=== PATIENT | male | born 1990 | race Asian ===

== ENCOUNTER 2018-11-01 21:07 | Inpatient (IN) | payer OTHER ==
[~2018-11-01] VITALS: Ht 167.6 cm; Wt 68.0 kg
[2018-11-01 21:20] VITALS: BP 152/79
--- NOTE | 2018-11-01 21:20 | NUR ---
ED Nurse Note: Patient walked into ED c/o SOB accompanied by non-radiating pressure like chest pain. patient is sattign at 86% on room air. patient was placed on a monitor and is tachycardic at 120 and tachypnic at 35. patient presents with wheezes in both lungs, denies any drug use. patient is alert and oriented x4 and is ambulatory with a steady gait. IV started on left AC 18 gauge, will wait for further orders
[2018-11-01] MEDS ORDERED: Solu-MEDROL 125mg Inj IVP ONE (21:30)
[2018-11-01] MEDS: Albuterol ud Inhalation HHN SCH ×3 (21:36→21:53)
[2018-11-01 22:04] LABS: HEMATOCRIT 47.7 % (42.0-52.0); HEMOGLOBIN 17.3 G/DL (14.2-18.0); MEAN CORPUSCULAR VOLUME 84 FL (80-99); PLATELET COUNT 279 K/UL (150-450); RED BLOOD COUNT 5.67 M/UL (4.70-6.10); WHITE BLOOD COUNT 21.3 K/UL (4.8-10.8)
[2018-11-01 22:07] LABS: APPEARANCE,URINE CLEAR; BILIRUBIN, URINE NEGATIVE (NEGATIVE); GLUCOSE, URINE (UA) NEGATIVE (NEGATIVE); KETONES,URINE 4+ (NEGATIVE); LEUKOCYTE ESTERASE ,URINE NEGATIVE (NEGATIVE); NITRITE,URINE NEGATIVE (NEGATIVE); PH,URINE 7 (4.5-8.0); PROTEIN,URINE NEGATIVE (NEGATIVE); UROBILINOGEN,URINE 4 MG/DL (0.0-1.0)
[2018-11-01 22:11] LABS: COLOR,URINE YELLOW
[2018-11-01 22:22] LABS: ANION GAP 10 mmol/L (5-15); BLOOD UREA NITROGEN 9 mg/dL (7-18); CALCIUM 9.1 MG/DL (8.5-10.1); CARBON DIOXIDE 25 MMOL/L (21-32); CHLORIDE 103 MMOL/L (98-107); POTASSIUM 3.4 MMOL/L (3.5-5.1); SODIUM 138 MMOL/L (136-145)
[2018-11-01] MEDS ORDERED: Albuterol/Ipratropium 3ml neb HHN ONE (22:30)
[2018-11-01] MEDS ORDERED: cefTRIAXone 1 GM in NS 55 ML IVPB ONE (22:30)
[2018-11-01] MEDS ORDERED: Isovue-370 150ml vial INJ PRN (22:30)
[2018-11-01] MEDS ORDERED: Azithromycin 500 MG in D5W 275 ML IVPB ONE (22:30)
--- NOTE | 2018-11-01 22:34 | Emergency Room Report ---
History of Present Illness General Chief Complaint: Chest Pain Source: Patient Present Illness HPI Patient is a 28-year-old male who presents after increased chest discomfort. Patient reports of increased chest tightness. patient reports last using cocaine approximately 3 days prior to arrival. He states that he has been having increased difficulty with respirations and nonproductive cough. He denies any prior history of HIV or other medical conditions. He states he has prior history of allergy to cocaine. Patient reports having increased chest discomfort. he reports having worsening discomfort with supine position. Allergies: Coded Allergies: No Known Allergies (Unverified , 11/01/18) Patient History Past Medical History: see triage record Reviewed Nursing Documentation: PMH: Agreed; PSxH: Agreed Nursing Documentation-PMH Past Medical History: No Stated History Review of Systems All Other Systems: negative except mentioned in HPI Physical Exam Vital Signs Date Time Temp Pulse Resp B/P (MAP) Pulse Ox O2 Delivery O2 Flow Rate FiO2 11/01/18 21:15 98.6 120 37 163/81 (108) 86 Room Air 11/01/18 21:32 2.0 28 Sp02 EP Interpretation: reviewed, normal General Appearance: normal inspection, alert, GCS 15, moderate distress Head: atraumatic ENT: normal ENT inspection, hearing grossly normal, normal voice Neck: normal inspection, supple, no bony tend Respiratory: normal inspection, no respiratory distress, no retraction, accessory muscle use, wheezing Cardiovascular #1: regular rate, rhythm, no edema Gastrointestinal: normal inspection, normal bowel sounds, non tender, soft, no guarding, no hernia Genitourinary: no CVA tenderness Musculoskeletal: normal inspection, back normal, normal range of motion Neurologic: normal inspection, alert, oriented x3, responsive, rn birthing III-XII nml as tested, speech normal Psychiatric: normal inspection, judgement/insight normal, mood/affect normal Medical Decision Making Diagnostic Impression: Primary Impression: Chest pain Additional Impressions: Bronchospasm, acute Pneumonitis ER Course Patient presented for shortness of breath. Differential diagnosis include was not limited to pneumonia, congestive heart failure, pulmonary embolism, among others. Because of complexity of patient's case laboratory testing and imaging studies were ordered. EKG interpreted by me showed sinus tachycardia with a rate of 117 with right axis deviation. There are no acute ST or T wave changes noted. Patient given breathing treatments as well as IV steroids. Laboratory testing was notable for elevated white blood count. Chest x-ray one view interpreted by me showed normal cardiac size with bilateral lung infiltrates. Patient was noted to have some low oxygen saturation after medications.CT imaging of the chest read by radiology showed aortic aneurysm or dissection. patient was noted to have significant hypoxemia and was started on supplemental oxygen. He was given IV fluids. He was started on IV antibiotics. Urine drug screen showed cocaine as well as marijuana. Patient's lung findings per radiology shows some evidence of atypical pneumonia. Dr. Devika Maldonado was contacted for inpatient management Labs Test 11/01/18 21:00 11/01/18 21:30 White Blood Count 21.3 K/UL (4.8-10.8) Red Blood Count 5.67 M/UL (4.70-6.10) Hemoglobin 17.3 G/DL (14.2-18.0) Hematocrit 47.7 % (42.0-52.0) Mean Corpuscular Volume 84 FL (80-99) Mean Corpuscular Hemoglobin 30.5 PG (27.0-31.0) Mean Corpuscular Hemoglobin Concent 36.3 G/DL (32.0-36.0) Red Cell Distribution Width 11.0 % (11.6-14.8) Platelet Count 279 K/UL (150-450) Mean Platelet Volume 6.3 FL (6.5-10.1) Neutrophils (%) (Auto) % (45.0-75.0) Lymphocytes (%) (Auto) % (20.0-45.0) Monocytes (%) (Auto) % (1.0-10.0) Eosinophils (%) (Auto) % (0.0-3.0) Basophils (%) (Auto) % (0.0-2.0) D-Dimer 0.76 mg/L FEU (0.00-0.49) Sodium Level 138 MMOL/L (136-145) Potassium Level 3.4 MMOL/L (3.5-5.1) Chloride Level 103 MMOL/L (98-107) Carbon Dioxide Level 25 MMOL/L (21-32) Anion Gap 10 mmol/L (5-15) Blood Urea Nitrogen 9 mg/dL (7-18) Creatinine 1.0 MG/DL (0.55-1.30) Estimat Glomerular Filtration Rate > 60 mL/min (>60) Glucose Level 104 MG/DL (74-106) Calcium Level 9.1 MG/DL (8.5-10.1) Urine Color Yellow Urine Appearance Clear Urine pH 7 (4.5-8.0) Urine Specific [place] 1.010 (1.005-1.035) Urine Protein Negative (NEGATIVE) Urine Glucose (UA) Negative (NEGATIVE) Urine Ketones 4+ (NEGATIVE) Urine Blood Negative (NEGATIVE) Urine Nitrite Negative (NEGATIVE) Urine Bilirubin Negative (NEGATIVE) Urine Urobilinogen 4 MG/DL (0.0-1.0) Urine Leukocyte Esterase Negative (NEGATIVE) Urine Opiates Screen Negative (NEGATIVE) Urine Barbiturates Screen Negative (NEGATIVE) Phencyclidine (PCP) Screen Negative (NEGATIVE) Urine Amphetamines Screen Negative (NEGATIVE) Urine Benzodiazepines Screen Negative (NEGATIVE) Urine Cocaine Screen Positive (NEGATIVE) Urine Marijuana (THC) Screen Positive (NEGATIVE) Last Vital Signs Date Time Temp Pulse Resp B/P (MAP) Pulse Ox O2 Delivery O2 Flow Rate FiO2 11/01/18 22:04 122 26 98 Nasal Cannula 2.0 28 11/01/18 21:15 98.6 163/81 (108) Status: improved Disposition: HOME, SELF-CARE Condition: Stable Referrals: NOT CHOSEN IPA/,REFERRING (PCP) Antonio Mcclendon MD Nov 01, 2018 22:34
[2018-11-01 22:37] LABS: ALANINE AMINOTRANSFERASE 31 U/L (12-78); ALBUMIN 3.9 G/DL (3.4-5.0); ALBUMIN/GLOBULIN RATIO 1.1 (1.0-2.7); ALKALINE PHOSPHATASE 111 U/L (46-116); ASPARTATE AMINO TRANSFERASE 16 U/L (15-37); CKMB 2.3 NG/ML (0.0-3.6); CREATINE KINASE 163 U/L (26-308)
[2018-11-01 22:39] LABS: BILIRUBIN,DIRECT 0.4 MG/DL (0.0-0.3)
[2018-11-01] MEDS ORDERED: NKM (23:36)
--- NOTE | 2018-11-01 23:48 | NUR ---
ED Nurse Note: Patient is laying down calmly in bed, o2 sat at 90%
[2018-11-02] VITALS (7 sets, daily range): BP systolic 119–140; BP diastolic 70–86
--- NOTE | 2018-11-02 00:10 | Diagnostic Imaging Report ---
Indication: Chest pain and shortness of breath Technique: Continuous helical transaxial imaging of the chest was obtained from the thoracic inlet to the upper abdomen during rapid intravenous contrast administration. Arterial phase of enhancement obtained. Coronal 2-D reformats were also obtained and maximum intensity projection images in multiple planes. Study obtained in a Siemens sensation [address] Automatic Exposure Control was utilized. Total Dose length Product (DLP): 745.[address] Dose Index Volume (CTDIvol): 20.42 mGy Comparison: None Findings: The pulmonary artery is well opacified and shows no filling defects. There is no adenopathy, pleural or pericardial effusions are identified. There is no aortic dissection or aneurysm identified within the chest. Patchy reticular nodular densities are demonstrated within the lungs with some mild perihilar and peripheral upper lobe groundglass opacities and focal left posterior basilar groundglass opacity. Findings are nonspecific but may be infectious or inflammatory in nature. Correlate clinically. Impression: No evidence of pulmonary embolus, aortic dissection or aneurysm. Pulmonary infiltrates as described above, nonspecific but suggestive of inflammatory/infectious disease. Would consider embolic phenomena especially septic emboli, atypical pneumonia especially fungal or granulomatous. Neoplasm is generally considered in the differential but given the young age is not likely. Would consider drug-induced pneumonitis or allergy as well. Clinical workup is needed. The CT scanner at [facility] is accredited by the [employer] and the scans are performed using dose optimization techniques as appropriate to a performed exam including Automatic Exposure control.
--- NOTE | 2018-11-02 00:15 | NUR ---
ED Nurse Note: Non-rebreather placed on patient, satting at 98%
--- NOTE | 2018-11-02 00:37 | NUR ---
ED Nurse Note: Patient placed on a simple mask 5 liters, satting at 97%
--- NOTE | 2018-11-02 00:45 | NUR ---
TRANSFER TO FLOOR: Patient transferred to Telemetry as ordered, per . Report given to EDY Mendoza
--- NOTE | 2018-11-02 02:30 | NUR ---
NURSE NOTES: patient has 823 dollars in the safe all confirmed by myself, security, charge nurse, and data warehouse consultant. Patient has his tear off and hospital tear off was stapled to patients belongings list in chart
[2018-11-02 07:28] LABS: HEMATOCRIT 45.3 % (42.0-52.0); HEMOGLOBIN 15.7 G/DL (14.2-18.0); MEAN CORPUSCULAR VOLUME 89 FL (80-99); PLATELET COUNT 254 K/UL (150-450); WHITE BLOOD COUNT 15.8 K/UL (4.8-10.8)
[2018-11-02 07:40] LABS: ALANINE AMINOTRANSFERASE 25 U/L (12-78); ALBUMIN 3.3 G/DL (3.4-5.0); ALBUMIN/GLOBULIN RATIO 0.9 (1.0-2.7); ALKALINE PHOSPHATASE 97 U/L (46-116); ANION GAP 10 mmol/L (5-15); ASPARTATE AMINO TRANSFERASE 13 U/L (15-37); BLOOD UREA NITROGEN 9 mg/dL (7-18); CALCIUM 9.1 MG/DL (8.5-10.1); CARBON DIOXIDE 24 MMOL/L (21-32); CHLORIDE 106 MMOL/L (98-107); CREATININE 0.9 MG/DL (0.55-1.30); POTASSIUM 3.9 MMOL/L (3.5-5.1); SODIUM 140 MMOL/L (136-145)
--- NOTE | 2018-11-02 07:54 | NUR ---
NURSE NOTES: Received report from EDY Huff. The patient is resting on the bed without acute distress or shortness of breath. The patient's bed in the lowest position, call light in reach, and fall and aspiration precaution reinforced. IV site is intact and patent. Will continue plan of care.
--- NOTE | 2018-11-02 09:11 | Consultation ---
History of Present Illness General Date patient seen: Nov 02, 2018 Chief Complaint: Present Illness Allergies: Coded Allergies: No Known Allergies (Unverified , 11/01/18) Medication History Scheduled No Known Medications* (NKM - No Known Medications*), 0 ., (Reported) Patient History Healthcare decision maker Resuscitation status Full Code Advanced Directive on File Physical Exam Last 24 Hour Vital Signs Date Time Temp Pulse Resp B/P (MAP) Pulse Ox O2 Delivery O2 Flow Rate FiO2 11/02/18 08:00 97.4 97 18 134/77 (96) 95 11/02/18 04:00 98.1 105 18 133/70 (91) 96 11/02/18 04:00 102 11/02/18 02:32 103 11/02/18 01:52 96.9 105 18 127/76 (93) 96 11/02/18 01:51 Room Air 11/02/18 00:37 98.5 112 21 132/72 97 Simple Mask 5.0 11/02/18 00:15 98.6 110 21 138/72 97 Room Air 5.0 11/01/18 22:46 124 21 97 Nasal Cannula 2.0 28 11/01/18 22:36 122 17 95 Nasal Cannula 2.0 28 11/01/18 22:04 122 26 98 Nasal Cannula 2.0 28 11/01/18 21:55 123 25 97 Nasal Cannula 2.0 28 11/01/18 21:54 123 25 97 Nasal Cannula 2.0 28 11/01/18 21:45 125 33 98 Nasal Cannula 2.0 28 11/01/18 21:44 125 34 98 Nasal Cannula 2.0 28 11/01/18 21:34 120 26 94 Nasal Cannula 2.0 28 11/01/18 21:32 120 26 94 Nasal Cannula 2.0 28 11/01/18 21:20 120 37 Room Air 11/01/18 21:20 98.6 120 37 152/79 89 Room Air 11/01/18 21:15 98.6 120 37 163/81 (108) 86 Room Air Intake and Output 11/01/18 11/02/18 19:00 07:00 Intake Total 1000 ml Balance 1000 ml Intake IV Total 1000 ml # Voids 3 Laboratory Tests Test 11/01/18 21:00 11/01/18 21:30 11/01/18 22:30 11/02/18 00:37 White Blood Count 21.3 K/UL (4.8-10.8) H Red Blood Count 5.67 M/UL (4.70-6.10) Hemoglobin 17.3 G/DL (14.2-18.0) Hematocrit 47.7 % (42.0-52.0) Mean Corpuscular Volume 84 FL (80-99) Mean Corpuscular Hemoglobin 30.5 PG (27.0-31.0) Mean Corpuscular Hemoglobin Concent 36.3 G/DL (32.0-36.0) H Red Cell Distribution Width 11.0 % (11.6-14.8) L Platelet Count 279 K/UL (150-450) Mean Platelet Volume 6.3 FL (6.5-10.1) L Neutrophils (%) (Auto) % (45.0-75.0) Lymphocytes (%) (Auto) % (20.0-45.0) Monocytes (%) (Auto) % (1.0-10.0) Eosinophils (%) (Auto) % (0.0-3.0) Basophils (%) (Auto) % (0.0-2.0) Differential Total Cells Counted 100 Neutrophils % (Manual) 85 % (45-75) H Lymphocytes % (Manual) 10 % (20-45) L Monocytes % (Manual) 2 % (1-10) Eosinophils % (Manual) 1 % (0-3) Basophils % (Manual) 1 % (0-2) Band Neutrophils 1 % (0-8) Platelet Estimate Adequate Platelet Morphology Normal Red Blood Cell Morphology Normal D-Dimer 0.76 mg/L FEU (0.00-0.49) H Sodium Level 138 MMOL/L (136-145) Potassium Level 3.4 MMOL/L (3.5-5.1) L Chloride Level 103 MMOL/L (98-107) Carbon Dioxide Level 25 MMOL/L (21-32) Anion Gap 10 mmol/L (5-15) Blood Urea Nitrogen 9 mg/dL (7-18) Creatinine 1.0 MG/DL (0.55-1.30) Estimat Glomerular Filtration Rate > 60 mL/min (>60) Glucose Level 104 MG/DL (74-106) Calcium Level 9.1 MG/DL (8.5-10.1) Total Bilirubin 2.0 MG/DL (0.2-1.0) H Direct Bilirubin 0.4 MG/DL (0.0-0.3) H Aspartate Amino Transf (AST/SGOT) 16 U/L (15-37) Alanine Aminotransferase (ALT/SGPT) 31 U/L (12-78) Alkaline Phosphatase 111 U/L (46-116) Total Creatine Kinase 163 U/L (26-308) Creatine Kinase MB 2.3 NG/ML (0.0-3.6) Creatine Kinase MB Relative Index 1.4 Troponin I 0.000 ng/mL (0.000-0.056) Pro-B-Type Natriuretic Peptide 74 pg/mL (0-125) Total Protein 7.6 G/DL (6.4-8.2) Albumin 3.9 G/DL (3.4-5.0) Globulin 3.7 g/dL Albumin/Globulin Ratio 1.1 (1.0-2.7) Urine Color Yellow Urine Appearance Clear Urine pH 7 (4.5-8.0) Urine Specific [place] 1.010 (1.005-1.035) Urine Protein Negative (NEGATIVE) Urine Glucose (UA) Negative (NEGATIVE) Urine Ketones 4+ (NEGATIVE) H Urine Blood Negative (NEGATIVE) Urine Nitrite Negative (NEGATIVE) Urine Bilirubin Negative (NEGATIVE) Urine Urobilinogen 4 MG/DL (0.0-1.0) H Urine Leukocyte Esterase Negative (NEGATIVE) Urine Opiates Screen Negative (NEGATIVE) Urine Barbiturates Screen Negative (NEGATIVE) Phencyclidine (PCP) Screen Negative (NEGATIVE) Urine Amphetamines Screen Negative (NEGATIVE) Urine Benzodiazepines Screen Negative (NEGATIVE) Urine Cocaine Screen Positive (NEGATIVE) H Urine Marijuana (THC) Screen Positive (NEGATIVE) H Lactic Acid Level 1.90 mmol/L (0.4-2.0) Arterial Blood pH 7.420 (7.350-7.450) Arterial Blood Partial Pressure CO2 37.8 mmHg (35.0-45.0) Arterial Blood Partial Pressure O2 90.7 mmHg (75.0-100.0) Arterial Blood HCO3 24.0 mmol/L (22.0-26.0) Arterial Blood Oxygen Saturation 96.2 % (95-100) Arterial Blood Base Excess -0.2 (-2-2) Enmanuel Test Positive Test 8/14/19 06:34 White Blood Count 15.8 K/UL (4.8-10.8) H Red Blood Count 5.10 M/UL (4.70-6.10) Hemoglobin 15.7 G/DL (14.2-18.0) Hematocrit 45.3 % (42.0-52.0) Mean Corpuscular Volume 89 FL (80-99) Mean Corpuscular Hemoglobin 30.7 PG (27.0-31.0) Mean Corpuscular Hemoglobin Concent 34.6 G/DL (32.0-36.0) Red Cell Distribution Width 12.0 % (11.6-14.8) Platelet Count 254 K/UL (150-450) Mean Platelet Volume 7.1 FL (6.5-10.1) Neutrophils (%) (Auto) % (45.0-75.0) Lymphocytes (%) (Auto) % (20.0-45.0) Monocytes (%) (Auto) % (1.0-10.0) Eosinophils (%) (Auto) % (0.0-3.0) Basophils (%) (Auto) % (0.0-2.0) Differential Total Cells Counted 100 Neutrophils % (Manual) 95 % (45-75) H Lymphocytes % (Manual) 3 % (20-45) L Monocytes % (Manual) 2 % (1-10) Eosinophils % (Manual) 0 % (0-3) Basophils % (Manual) 0 % (0-2) Band Neutrophils 0 % (0-8) Platelet Estimate Adequate Platelet Morphology Normal Sodium Level 140 MMOL/L (136-145) Potassium Level 3.9 MMOL/L (3.5-5.1) Chloride Level 106 MMOL/L (98-107) Carbon Dioxide Level 24 MMOL/L (21-32) Anion Gap 10 mmol/L (5-15) Blood Urea Nitrogen 9 mg/dL (7-18) Creatinine 0.9 MG/DL (0.55-1.30) Estimat Glomerular Filtration Rate > 60 mL/min (>60) Glucose Level 155 MG/DL (74-106) H Calcium Level 9.1 MG/DL (8.5-10.1) Total Bilirubin 1.0 MG/DL (0.2-1.0) Aspartate Amino Transf (AST/SGOT) 13 U/L (15-37) L Alanine Aminotransferase (ALT/SGPT) 25 U/L (12-78) Alkaline Phosphatase 97 U/L (46-116) Total Protein 7.1 G/DL (6.4-8.2) Albumin 3.3 G/DL (3.4-5.0) L Globulin 3.8 g/dL Albumin/Globulin Ratio 0.9 (1.0-2.7) L Height (Feet): 5 Height (Inches): 6.00 Weight (Pounds): 150 Medications Current Medications Medications (Trade) Dose Ordered Sig/Warren Route PRN Reason Start Time Stop Time Status Last Admin Dose Admin Iopamidol (Isovue-370 150ml) 150 ml NOW PRN INJ Radiology Procedure 11/01/18 22:30 11/03/18 22:28 Sodium Chloride 1,000 ml @ 70 mls/hr [id number] IV 11/02/18 01:45 12/02/18 01:44 11/02/18 01:45 Assessment/Plan Assessment/Plan: (1) Bronchospasm (2) Pneumonitis (3) Cocaine abuse (4) Alcohol abuse and withdrawals seen dictated Abebe Padilla Nov 02, 2018 09:11
[2018-11-02] MEDS ORDERED: LORazepam 1mg tab ORAL PRN (09:30)
[2018-11-02] MEDS ORDERED: HydrALAZINE 25mg tab ORAL PRN (10:00)
--- NOTE | 2018-11-02 10:00 | NUR ---
NURSE NOTES: Notified Dr. Zamora and Dr. Jacobs regarding abnormal lab result including WBC and D-dimer level. Also notified regarding CTA chest that said no PE, aortic anurysm or dissection. Dr. Jacobs ordered antibiotics and PRN medication for hypertension, NC oxygen, bilateral venous duplex, Tylenol, Zofram, CBC, BMP, HIV testing. Dr. Zamora ordered regular diet starting from mechanical soft and as tolerated. Carried out the order. Will continue plan of care.
[2018-11-02 10:23] LABS: HEMATOCRIT 49.2 % (42.0-52.0); HEMOGLOBIN 16.5 G/DL (14.2-18.0); MEAN CORPUSCULAR VOLUME 89 FL (80-99); PLATELET COUNT 279 K/UL (150-450); RED BLOOD COUNT 5.52 M/UL (4.70-6.10); WHITE BLOOD COUNT 17.5 K/UL (4.8-10.8)
[2018-11-02 10:33] LABS: ANION GAP 9 mmol/L (5-15); BLOOD UREA NITROGEN 9 mg/dL (7-18); CALCIUM 9.6 MG/DL (8.5-10.1); CARBON DIOXIDE 26 MMOL/L (21-32); CHLORIDE 106 MMOL/L (98-107); CREATININE 1.1 MG/DL (0.55-1.30); POTASSIUM 4.4 MMOL/L (3.5-5.1); SODIUM 140 MMOL/L (136-145)
--- NOTE | 2018-11-02 10:40 | NUR ---
Social Work This SW received notification due to substance abuse (cocaine). This SW met with patient who explains he was using cocaine recently, explains, "I'm not going to continue using anymore," due to the recent side effects/health problems patient has been having. This SW recommended outpatient counseling, support groups (offered substance abuse resources). Patient declined substance resources at this time. Patient plans to discharge to home with friend or to his mother's home; no other needs or concerns present at this time.
--- NOTE | 2018-11-02 11:30 | NUR ---
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 Would consider embolic phenomena especially septic emboli, atypical pneumonia especially fungal or granulomatous. Neoplasm is generally considered in the differential but given the young age is not likely. Would consider drug-induced pneumonitis or allergy as well. Clinical workup is needed. IS: Proventil HHN Solu-MEDROL 125mg IVP NS 1000ml IV Rocephin 1GM IVPB Albuterol/Ipratropium HHN Admitted to Telemetry Telemetry status DCP: Pending Hospital Stay
--- NOTE | 2018-11-02 11:35 | Pulmonology Progress Note ---
Assessment/Plan Assessment/Plan Pulmonary Consultation HPI Patient is a 28-year-old male admitted with chest discomfort shortness of breath and non productive cough, noted to have Pneumonia, patient reports last using cocaine approximately 3 days prior to arrival. He denies any prior history of HIV or other medical conditions. He states he has prior history of allergy to cocaine. Patient reports having increased chest discomfort. Denies hemoptysis, no previous Tuberculosis Allergies: No Known Allergies Past Medical History: Cocaine use All Other Systems: negative except mentioned in HPI Physical Exam Vital Signs Noted Date Time Temp Pulse Resp B/P (MAP) Pulse Ox O2 Delivery O2 Flow Rate FiO2 11/01/18 21:15 98.6 120 37 163/81 (108) 86 Room Air 11/01/18 21:32 2.0 28 General Appearance: normal inspection, alert, GCS 15, moderate distress Head: atraumatic ENT: normal inspection, moist mm, normal voice Neck: normal inspection, no LN Respiratory: normal inspection, CTAB Cardiovascular #1: regular rate, rhythm, normal HS1, HS2, no edema Gastrointestinal: normal inspection, normal bowel sounds, non tender, soft, no guarding, no hernia Genitourinary: no CVA tenderness Musculoskeletal: normal inspection, back normal, normal range of motion Neurologic: normal inspection, alert, oriented x3, responsive, no focal signs Impression: Pneumonia, bilateral patchy infiltrates Cocaine use Chest pain- no PE/Aortic dissection on CTA chest Wheezing Plan Ceftriaxone and Azithromycin IV steroids HHN PSYCH TECH meds PPX HIV serology negative Labs Test 11/01/18 21:00 11/01/18 21:30 White Blood Count 21.3 K/UL (4.8-10.8) Red Blood Count 5.67 M/UL (4.70-6.10) Hemoglobin 17.3 G/DL (14.2-18.0) Hematocrit 47.7 % (42.0-52.0) Mean Corpuscular Volume 84 FL (80-99) Mean Corpuscular Hemoglobin 30.5 PG (27.0-31.0) Mean Corpuscular Hemoglobin Concent 36.3 G/DL (32.0-36.0) Red Cell Distribution Width 11.0 % (11.6-14.8) Platelet Count 279 K/UL (150-450) Mean Platelet Volume 6.3 FL (6.5-10.1) Neutrophils (%) (Auto) % (45.0-75.0) Lymphocytes (%) (Auto) % (20.0-45.0) Monocytes (%) (Auto) % (1.0-10.0) Eosinophils (%) (Auto) % (0.0-3.0) Basophils (%) (Auto) % (0.0-2.0) D-Dimer 0.76 mg/L FEU (0.00-0.49) Sodium Level 138 MMOL/L (136-145) Potassium Level 3.4 MMOL/L (3.5-5.1) Chloride Level 103 MMOL/L (98-107) Carbon Dioxide Level 25 MMOL/L (21-32) Anion Gap 10 mmol/L (5-15) Blood Urea Nitrogen 9 mg/dL (7-18) Creatinine 1.0 MG/DL (0.55-1.30) Estimat Glomerular Filtration Rate > 60 mL/min (>60) Glucose Level 104 MG/DL (74-106) Calcium Level 9.1 MG/DL (8.5-10.1) Urine Color Yellow Urine Appearance Clear Urine pH 7 (4.5-8.0) Urine Specific [place] 1.010 (1.005-1.035) Urine Protein Negative (NEGATIVE) Urine Glucose (UA) Negative (NEGATIVE) Urine Ketones 4+ (NEGATIVE) Urine Blood Negative (NEGATIVE) Urine Nitrite Negative (NEGATIVE) Urine Bilirubin Negative (NEGATIVE) Urine Urobilinogen 4 MG/DL (0.0-1.0) Urine Leukocyte Esterase Negative (NEGATIVE) Urine Opiates Screen Negative (NEGATIVE) Urine Barbiturates Screen Negative (NEGATIVE) Phencyclidine (PCP) Screen Negative (NEGATIVE) Urine Amphetamines Screen Negative (NEGATIVE) Urine Benzodiazepines Screen Negative (NEGATIVE) Urine Cocaine Screen Positive (NEGATIVE) Urine Marijuana (THC) Screen Positive (NEGATIVE) Subjective ROS Limited/Unobtainable: No Allergies: Coded Allergies: No Known Allergies (Unverified , 11/01/18) Objective Last 24 Hour Vital Signs Date Time Temp Pulse Resp B/P (MAP) Pulse Ox O2 Delivery O2 Flow Rate FiO2 11/02/18 08:00 97.4 97 18 134/77 (96) 95 11/02/18 04:00 98.1 105 18 133/70 (91) 96 11/02/18 04:00 102 11/02/18 02:32 103 11/02/18 01:52 96.9 105 18 127/76 (93) 96 11/02/18 01:51 Room Air 11/02/18 00:37 98.5 112 21 132/72 97 Simple Mask 5.0 11/02/18 00:15 98.6 110 21 138/72 97 Room Air 5.0 11/01/18 22:46 124 21 97 Nasal Cannula 2.0 11/01/18 22:36 122 17 95 Nasal Cannula 2.0 11/01/18 22:04 122 26 98 Nasal Cannula 2.0 11/01/18 21:55 123 25 97 Nasal Cannula 2.0 11/01/18 21:54 123 25 97 Nasal Cannula 2.0 11/01/18 21:45 125 33 98 Nasal Cannula 2.0 11/01/18 21:44 125 34 98 Nasal Cannula 2.0 11/01/18 21:34 120 26 94 Nasal Cannula 2.0 11/01/18 21:32 120 26 94 Nasal Cannula 2.0 11/01/18 21:20 120 37 Room Air 11/01/18 21:20 98.6 120 37 152/79 89 Room Air 11/01/18 21:15 98.6 120 37 163/81 (108) 86 Room Air Intake and Output 11/01/18 11/02/18 19:00 07:00 Intake Total 1000 ml Balance 1000 ml Intake IV Total 1000 ml # Voids 3 Laboratory Tests 11/01/18 21:00: White Blood Count 21.3H, Red Blood Count 5.67, Hemoglobin 17.3, Hematocrit 47.7 , Mean Corpuscular Volume 84, Mean Corpuscular Hemoglobin 30.5, Mean Corpuscular Hemoglobin Concent 36.3H, Red Cell Distribution Width 11.0L, Platelet Count 279, Mean Platelet Volume 6.3L, Neutrophils (%) (Auto) , Lymphocytes (%) (Auto) , Monocytes (%) (Auto) , Eosinophils (%) (Auto) , Basophils (%) (Auto) , Differential Total Cells Counted 100, Neutrophils % ( Manual) 85H, Lymphocytes % (Manual) 10L, Monocytes % (Manual) 2, Eosinophils % ( Manual) 1, Basophils % (Manual) 1, Band Neutrophils 1, Platelet Estimate Adequate, Platelet Morphology Normal, Red Blood Cell Morphology Normal, D-Dimer 0.76H, Sodium Level 138, Potassium Level 3.4L, Chloride Level 103, Carbon Dioxide Level 25, Anion Gap 10, Blood Urea Nitrogen 9, Creatinine 1.0, Estimat Glomerular Filtration Rate > 60, Glucose Level 104, Calcium Level 9.1, Total Bilirubin 2.0H, Direct Bilirubin 0.4H, Aspartate Amino Transf (AST/SGOT) 16, Alanine Aminotransferase (ALT/SGPT) 31, Alkaline Phosphatase 111, Total Creatine Kinase 163, Creatine Kinase MB 2.3, Creatine Kinase MB Relative Index 1.4, Troponin I 0.000, Pro-B-Type Natriuretic Peptide 74, Total Protein 7.6, Albumin 3.9, Globulin 3.7, Albumin/Globulin Ratio 1.1 11/01/18 21:30: Urine Color Yellow, Urine Appearance Clear, Urine pH 7, Urine Specific [place] 1.010, Urine Protein Negative, Urine Glucose (UA) Negative, Urine Ketones 4+H, Urine Blood Negative, Urine Nitrite Negative, Urine Bilirubin Negative, Urine Urobilinogen 4H, Urine Leukocyte Esterase Negative, Urine Opiates Screen Negative, Urine Barbiturates Screen Negative, Phencyclidine (PCP) Screen Negative, Urine Amphetamines Screen Negative, Urine Benzodiazepines Screen Negative, Urine Cocaine Screen PositiveH, Urine Marijuana (THC) Screen PositiveH 11/01/18 22:30: Lactic Acid Level 1.90 11/02/18 00:37: Arterial Blood pH 7.420, Arterial Blood Partial Pressure CO2 37.8, Arterial Blood Partial Pressure O2 90.7, Arterial Blood HCO3 24.0, Arterial Blood Oxygen Saturation 96.2, Arterial Blood Base Excess -0.2, Enmanuel Test Positive 11/02/18 06:34: White Blood Count 15.8H, Red Blood Count 5.10, Hemoglobin 15.7, Hematocrit 45.3 , Mean Corpuscular Volume 89, Mean Corpuscular Hemoglobin 30.7, Mean Corpuscular Hemoglobin Concent 34.6, Red Cell Distribution Width 12.0, Platelet Count 254, Mean Platelet Volume 7.1, Neutrophils (%) (Auto) , Lymphocytes (%) ( Auto) , Monocytes (%) (Auto) , Eosinophils (%) (Auto) , Basophils (%) (Auto) , Differential Total Cells Counted 100, Neutrophils % (Manual) 95H, Lymphocytes % (Manual) 3L, Monocytes % (Manual) 2, Eosinophils % (Manual) 0, Basophils % ( Manual) 0, Band Neutrophils 0, Platelet Estimate Adequate, Platelet Morphology Normal, Sodium Level 140, Potassium Level 3.9, Chloride Level 106, Carbon Dioxide Level 24, Anion Gap 10, Blood Urea Nitrogen 9, Creatinine 0.9, Estimat Glomerular Filtration Rate > 60, Glucose Level 155H, Calcium Level 9.1, Total Bilirubin 1.0, Aspartate Amino Transf (AST/SGOT) 13L, Alanine Aminotransferase ( ALT/SGPT) 25, Alkaline Phosphatase 97, Total Protein 7.1, Albumin 3.3L, Globulin 3.8, Albumin/Globulin Ratio 0.9L 11/02/18 10:10: White Blood Count 17.5H, Red Blood Count 5.52, Hemoglobin 16.5, Hematocrit 49.2 , Mean Corpuscular Volume 89, Mean Corpuscular Hemoglobin 29.9, Mean Corpuscular Hemoglobin Concent 33.5, Red Cell Distribution Width 12.0, Platelet Count 279, Mean Platelet Volume 7.2, Neutrophils (%) (Auto) , Lymphocytes (%) ( Auto) , Monocytes (%) (Auto) , Eosinophils (%) (Auto) , Basophils (%) (Auto) , Differential Total Cells Counted 100, Neutrophils % (Manual) 92H, Lymphocytes % (Manual) 7L, Monocytes % (Manual) 1, Eosinophils % (Manual) 0, Basophils % ( Manual) 0, Band Neutrophils 0, Platelet Estimate Adequate, Platelet Morphology Normal, Sodium Level 140, Potassium Level 4.4, Chloride Level 106, Carbon Dioxide Level 26, Anion Gap 9, Blood Urea Nitrogen 9, Creatinine 1.1, Estimat Glomerular Filtration Rate > 60, Glucose Level 136H, Calcium Level 9.6, HIV (1&2 ) Antibody Rapid Negative Current Medications Medications (Trade) Dose Ordered Sig/Warren Route PRN Reason Start Time Stop Time Status Last Admin Dose Admin Acetaminophen (Tylenol) 650 mg Q4H PRN ORAL Mild Pain/Temp > 100.5 11/02/18 09:30 12/02/18 09:29 11/02/18 10:37 Azithromycin 500 mg/Dextrose 275 ml @ 275 mls/hr Q24HRS IV 11/02/18 13:00 11/08/18 13:59 Ceftriaxone Sodium 1 gm/ Dextrose 55 ml @ 110 mls/hr Q24H IVPB 11/02/18 12:00 11/09/18 11:59 Hydralazine HCl (Apresoline) 25 mg Q6H PRN ORAL For High Blood Pressure 11/02/18 10:00 12/02/18 09:59 Iopamidol (Isovue-370 150ml) 150 ml NOW PRN INJ Radiology Procedure 11/01/18 22:30 11/03/18 22:28 Lorazepam (Ativan) 1 mg Q4H PRN ORAL For Anxiety/agitation 11/02/18 09:30 11/09/18 09:29 Ondansetron HCl (Zofran) 4 mg Q8H PRN IVP Nausea & Vomiting 11/02/18 10:00 12/02/18 09:59 Sodium Chloride 1,000 ml @ 70 mls/hr [id number] IV 11/02/18 01:45 12/02/18 01:44 11/02/18 01:45 Tommy Jacobs MD Nov 02, 2018 11:35
--- NOTE | 2018-11-02 12:00 | NUR ---
NURSE NOTES: The patient is stable without acute distress or shortness of breath. The patient's oxygen saturation is 96% in 2L NC. Will continue plan of care.
--- NOTE | 2018-11-02 12:04 | Diagnostic Imaging Report ---
Indication: Dyspnea Comparison: None A single view chest radiograph was obtained. Findings: There is some fullness of the perihilar soft tissues. Infiltrate not excluded especially in the right perihilar region. Suggest follow-up. Heart size is normal. Bones are unremarkable. IMPRESSION: Perihilar infiltrate suspected
[2018-11-02] MEDS: cefTRIAXone 1 GM in D5W 55 ML IVPB SCH (12:05)
--- NOTE | 2018-11-02 12:55 | NUR ---
NURSE NOTES: Dr. Jacobs ordered Duoneb Q4hr, Solumedrol 60mg IVP, and Heparin SQ 5000unit BID. Carried out the order. The patient is resting on the bed without chest pain or shortness of breath. Will continue plan of care.
[2018-11-02] MEDS: Azithromycin 500 MG in D5W 275 ML IV SCH (13:01)
--- NOTE | 2018-11-02 13:08 | Consultation ---
History of Present Illness General Chief Complaint: Chest Pain Present Illness Allergies: Coded Allergies: No Known Allergies (Unverified , 11/01/18) Medication History Scheduled No Known Medications* (NKM - No Known Medications*), 0 ., (Reported) Patient History Healthcare decision maker SELF Resuscitation status Full Code Advanced Directive on File Physical Exam Last 24 Hour Vital Signs Date Time Temp Pulse Resp B/P (MAP) Pulse Ox O2 Delivery O2 Flow Rate FiO2 11/02/18 12:00 98.1 102 20 125/78 (94) 95 11/02/18 08:00 97.4 97 18 134/77 (96) 95 11/02/18 04:00 98.1 105 18 133/70 (91) 96 11/02/18 04:00 102 11/02/18 02:32 103 11/02/18 01:52 96.9 105 18 127/76 (93) 96 11/02/18 01:51 Room Air 11/02/18 00:37 98.5 112 21 132/72 97 Simple Mask 5.0 11/02/18 00:15 98.6 110 21 138/72 97 Room Air 5.0 11/01/18 22:46 124 21 97 Nasal Cannula 2.0 28 11/01/18 22:36 122 17 95 Nasal Cannula 2.0 28 11/01/18 22:04 122 26 98 Nasal Cannula 2.0 11/01/18 21:55 123 25 97 Nasal Cannula 2.0 28 11/01/18 21:54 123 25 97 Nasal Cannula 2.0 28 11/01/18 21:45 125 33 98 Nasal Cannula 2.0 11/01/18 21:44 125 34 98 Nasal Cannula 2.0 28 11/01/18 21:34 120 26 94 Nasal Cannula 2.0 28 11/01/18 21:32 120 26 94 Nasal Cannula 2.0 28 11/01/18 21:20 120 37 Room Air 11/01/18 21:20 98.6 120 37 152/79 89 Room Air 11/01/18 21:15 98.6 120 37 163/81 (108) 86 Room Air Intake and Output 11/01/18 11/02/18 19:00 07:00 Intake Total 1000 ml Balance 1000 ml IV Total 1000 ml # Voids 3 Laboratory Tests Test 11/01/18 21:00 11/01/18 21:30 11/01/18 22:30 11/02/18 00:37 White Blood Count 21.3 K/UL (4.8-10.8) H Red Blood Count 5.67 M/UL (4.70-6.10) Hemoglobin 17.3 G/DL (14.2-18.0) Hematocrit 47.7 % (42.0-52.0) Mean Corpuscular Volume 84 FL (80-99) Mean Corpuscular Hemoglobin 30.5 PG (27.0-31.0) Mean Corpuscular Hemoglobin Concent 36.3 G/DL (32.0-36.0) H Red Cell Distribution Width 11.0 % (11.6-14.8) L Platelet Count 279 K/UL (150-450) Mean Platelet Volume 6.3 FL (6.5-10.1) L Neutrophils (%) (Auto) % (45.0-75.0) Lymphocytes (%) (Auto) % (20.0-45.0) Monocytes (%) (Auto) % (1.0-10.0) Eosinophils (%) (Auto) % (0.0-3.0) Basophils (%) (Auto) % (0.0-2.0) Differential Total Cells Counted 100 Neutrophils % (Manual) 85 % (45-75) H Lymphocytes % (Manual) 10 % (20-45) L Monocytes % (Manual) 2 % (1-10) Eosinophils % (Manual) 1 % (0-3) Basophils % (Manual) 1 % (0-2) Band Neutrophils 1 % (0-8) Platelet Estimate Adequate Platelet Morphology Normal Red Blood Cell Morphology Normal D-Dimer 0.76 mg/L FEU (0.00-0.49) H Sodium Level 138 MMOL/L (136-145) Potassium Level 3.4 MMOL/L (3.5-5.1) L Chloride Level 103 MMOL/L (98-107) Carbon Dioxide Level 25 MMOL/L (21-32) Anion Gap 10 mmol/L (5-15) Blood Urea Nitrogen 9 mg/dL (7-18) Creatinine 1.0 MG/DL (0.55-1.30) Estimat Glomerular Filtration Rate > 60 mL/min (>60) Glucose Level 104 MG/DL (74-106) Calcium Level 9.1 MG/DL (8.5-10.1) Total Bilirubin 2.0 MG/DL (0.2-1.0) H Direct Bilirubin 0.4 MG/DL (0.0-0.3) H Aspartate Amino Transf (AST/SGOT) 16 U/L (15-37) Alanine Aminotransferase (ALT/SGPT) 31 U/L (12-78) Alkaline Phosphatase 111 U/L (46-116) Total Creatine Kinase 163 U/L (26-308) Creatine Kinase MB 2.3 NG/ML (0.0-3.6) Creatine Kinase MB Relative Index 1.4 Troponin I 0.000 ng/mL (0.000-0.056) Pro-B-Type Natriuretic Peptide 74 pg/mL (0-125) Total Protein 7.6 G/DL (6.4-8.2) Albumin 3.9 G/DL (3.4-5.0) Globulin 3.7 g/dL Albumin/Globulin Ratio 1.1 (1.0-2.7) Urine Color Yellow Urine Appearance Clear Urine pH 7 (4.5-8.0) Urine Specific [place] 1.010 (1.005-1.035) Urine Protein Negative (NEGATIVE) Urine Glucose (UA) Negative (NEGATIVE) Urine Ketones 4+ (NEGATIVE) H Urine Blood Negative (NEGATIVE) Urine Nitrite Negative (NEGATIVE) Urine Bilirubin Negative (NEGATIVE) Urine Urobilinogen 4 MG/DL (0.0-1.0) H Urine Leukocyte Esterase Negative (NEGATIVE) Urine Opiates Screen Negative (NEGATIVE) Urine Barbiturates Screen Negative (NEGATIVE) Phencyclidine (PCP) Screen Negative (NEGATIVE) Urine Amphetamines Screen Negative (NEGATIVE) Urine Benzodiazepines Screen Negative (NEGATIVE) Urine Cocaine Screen Positive (NEGATIVE) H Urine Marijuana (THC) Screen Positive (NEGATIVE) H Lactic Acid Level 1.90 mmol/L (0.4-2.0) Arterial Blood pH 7.420 (7.350-7.450) Arterial Blood Partial Pressure CO2 37.8 mmHg (35.0-45.0) Arterial Blood Partial Pressure O2 90.7 mmHg (75.0-100.0) Arterial Blood HCO3 24.0 mmol/L (22.0-26.0) Arterial Blood Oxygen Saturation 96.2 % (95-100) Arterial Blood Base Excess -0.2 (-2-2) Enmanuel Test Positive Test 11/02/18 06:34 11/02/18 10:10 White Blood Count 15.8 K/UL (4.8-10.8) H 17.5 K/UL (4.8-10.8) H Red Blood Count 5.10 M/UL (4.70-6.10) 5.52 M/UL (4.70-6.10) Hemoglobin 15.7 G/DL (14.2-18.0) 16.5 G/DL (14.2-18.0) Hematocrit 45.3 % (42.0-52.0) 49.2 % (42.0-52.0) Mean Corpuscular Volume 89 FL (80-99) 89 FL (80-99) Mean Corpuscular Hemoglobin 30.7 PG (27.0-31.0) 29.9 PG (27.0-31.0) Mean Corpuscular Hemoglobin Concent 34.6 G/DL (32.0-36.0) 33.5 G/DL (32.0-36.0) Red Cell Distribution Width 12.0 % (11.6-14.8) 12.0 % (11.6-14.8) Platelet Count 254 K/UL (150-450) 279 K/UL (150-450) Mean Platelet Volume 7.1 FL (6.5-10.1) 7.2 FL (6.5-10.1) Neutrophils (%) (Auto) % (45.0-75.0) % (45.0-75.0) Lymphocytes (%) (Auto) % (20.0-45.0) % (20.0-45.0) Monocytes (%) (Auto) % (1.0-10.0) % (1.0-10.0) Eosinophils (%) (Auto) % (0.0-3.0) % (0.0-3.0) Basophils (%) (Auto) % (0.0-2.0) % (0.0-2.0) Differential Total Cells Counted 100 100 Neutrophils % (Manual) 95 % (45-75) H 92 % (45-75) H Lymphocytes % (Manual) 3 % (20-45) L 7 % (20-45) L Monocytes % (Manual) 2 % (1-10) 1 % (1-10) Eosinophils % (Manual) 0 % (0-3) 0 % (0-3) Basophils % (Manual) 0 % (0-2) 0 % (0-2) Band Neutrophils 0 % (0-8) 0 % (0-8) Platelet Estimate Adequate Adequate Platelet Morphology Normal Normal Sodium Level 140 MMOL/L (136-145) 140 MMOL/L (136-145) Potassium Level 3.9 MMOL/L (3.5-5.1) 4.4 MMOL/L (3.5-5.1) Chloride Level 106 MMOL/L (98-107) 106 MMOL/L (98-107) Carbon Dioxide Level 24 MMOL/L (21-32) 26 MMOL/L (21-32) Anion Gap 10 mmol/L (5-15) 9 mmol/L (5-15) Blood Urea Nitrogen 9 mg/dL (7-18) 9 mg/dL (7-18) Creatinine 0.9 MG/DL (0.55-1.30) 1.1 MG/DL (0.55-1.30) Estimat Glomerular Filtration Rate > 60 mL/min (>60) > 60 mL/min (>60) Glucose Level 155 MG/DL (74-106) H 136 MG/DL (74-106) H Calcium Level 9.1 MG/DL (8.5-10.1) 9.6 MG/DL (8.5-10.1) Total Bilirubin 1.0 MG/DL (0.2-1.0) Aspartate Amino Transf (AST/SGOT) 13 U/L (15-37) L Alanine Aminotransferase (ALT/SGPT) 25 U/L (12-78) Alkaline Phosphatase 97 U/L (46-116) Total Protein 7.1 G/DL (6.4-8.2) Albumin 3.3 G/DL (3.4-5.0) L Globulin 3.8 g/dL Albumin/Globulin Ratio 0.9 (1.0-2.7) L HIV (1&2) Antibody Rapid Negative (NEGATIVE) Height (Feet): 5 Height (Inches): 6.00 Weight (Pounds): 150 Medications Current Medications Medications (Trade) Dose Ordered Sig/Warren Route PRN Reason Start Time Stop Time Status Last Admin Dose Admin Acetaminophen (Tylenol) 650 mg Q4H PRN ORAL Mild Pain/Temp > 100.5 11/02/18 09:30 12/02/18 09:29 11/02/18 10:37 Albuterol/ Ipratropium (Albuterol/ Ipratropium) 3 ml Q4HRT HHN 11/02/18 15:00 11/07/18 14:59 Azithromycin 500 mg/Dextrose 275 ml @ 275 mls/hr Q24HRS IV 11/02/18 13:00 11/08/18 13:59 11/02/18 13:01 Ceftriaxone Sodium 1 gm/ Dextrose 55 ml @ 110 mls/hr Q24H IVPB 11/02/18 12:00 11/09/18 11:59 11/02/18 12:05 Heparin Sodium (Porcine) (Heparin 5000 units/ml) 5,000 units Q12HR SUBQ 11/02/18 21:00 12/02/18 20:59 Hydralazine HCl (Apresoline) 25 mg Q6H PRN ORAL For High Blood Pressure 11/02/18 10:00 12/02/18 09:59 Iopamidol (Isovue-370 150ml) 150 ml NOW PRN INJ Radiology Procedure 11/01/18 22:30 11/03/18 22:28 Lorazepam (Ativan) 1 mg Q4H PRN ORAL For Anxiety/agitation 11/02/18 09:30 11/09/18 09:29 Methylprednisolone Sodium Succinate (Solu-MEDROL) 60 mg EVERY 12 HOURS IVP 11/02/18 21:00 12/02/18 20:59 Ondansetron HCl (Zofran) 4 mg Q8H PRN IVP Nausea & Vomiting 11/02/18 10:00 12/02/18 09:59 Sodium Chloride 1,000 ml @ 70 mls/hr [id number] IV 11/02/18 01:45 12/02/18 01:44 11/02/18 01:45 Assessment/Plan Assessment/Plan: Hematology Consultation REQ : Rose Maldonado RFC: Leukocytosis DOS: 11/02/18 ID Patient is a 28-year-old male who presents after increased chest discomfort. Patient reports of increased chest tightness. patient reports last using cocaine approximately 3 days prior to arrival. He states that he has been having increased difficulty with respirations and nonproductive cough. He denies any prior history of HIV or other medical conditions. He states he has prior history of allergy to cocaine. Patient reports having increased chest discomfort. he reports having worsening discomfort with supine position. Heme consulted given unexplanined and persistent high wbc Coded Allergies: No Known Allergies (Unverified , 11/01/18) Patient History Past Medical History: see triage record Reviewed Nursing Documentation: PMH: Agreed; PSxH: Agreed Nursing Documentation-PMH Past Medical History: No Stated History Review of Systems All Other Systems: negative except mentioned in HPI Physical Exam: Vitals: reviewed General Appearance: NAD HEENT: normocephalic, atraumatic Neck: non-tender, normal alignment Respiratory/Chest: normal breath sounds bilaterally Cardiovascular/Chest: normal peripheral pulses, normal rate Abdomen: normal bowel sounds, soft, nontender Extremities: normal range of motion Labs: reviewed Imaging: noted Assessment and Recs # Leukocytosis/elevated white blood cell count, unspecified likely related to underlying stress reaction, smoking v drug use (Also receiving steriods) --> have reviewed peripheral smear and bandemia/neutrophilia noted --> continue antibiotics if they have been started by ID team --> monitor for resolution trend 21k-->16-->18 # Chest pain likely due to atypical pneumonitis --> as per pulm --> on steriods # Bronchospasm, acute --> likely due to pneumonitos # Tachycardia now improved --> ivf given The timing of this note does not necessarily reflect the time of the patient was seen. GREATLY APPRECIATE CONSULTATION. Rodrigo Al MD Nov 02, 2018 13:08
[2018-11-02] MEDS: Albuterol/Ipratropium 3ml neb HHN SCH ×3 (15:00→23:26)
--- NOTE | 2018-11-02 15:42 | NUR ---
NURSE NOTES: The patient's DVT result showed negative result. Will continue plan of care.
--- NOTE | 2018-11-02 18:00 | Consultation ---
DATE OF CONSULTATION: 11/02/2018 INFECTIOUS DISEASES CONSULTATION CONSULTING PHYSICIAN: Patricio Mak M.D. PRIMARY ATTENDING PHYSICIAN: Devika Zamora M.D. REASON FOR CONSULTATION: Pneumonia. HISTORY OF PRESENT ILLNESS: The patient is a 28-year-old male admitted yesterday complaining of chest tightness, difficulty of breathing, coughing. Symptoms were increased with supine position. The patient's symptoms started two to three days ago. At that time, he used cocaine. At the time of admission, had leukocytosis of 21.3 and tachycardia with heart rate of 120. PAST MEDICAL HISTORY: Nonsignificant except for hypertension. ALLERGIES: No known drug allergy. MEDICATIONS: Getting methylprednisone, heparin, albuterol ipratropium inhaler, ceftriaxone, azithromycin, hydralazine, Zofran, Tylenol, lorazepam, sodium chloride. SOCIAL HISTORY: [place] in origin. Smoke cocaine and marijuana. Single, lives with a friend. Worked in the [employer] until one month ago. REVIEW OF SYSTEMS: No significant fever and chills. Some runny nose. No sore throat. Cough is getting more productive. No nausea. No vomiting. No diarrhea. No problem passing urine. PHYSICAL EXAMINATION: VITAL SIGNS: Temperature 98.1, pulse 102, blood pressure 125/78. GENERAL APPEARANCE: Well developed, no acute distress. HEAD AND NECK: Getting oxygen by nasal cannula. HEART: Tachycardic. LUNGS: Clear. ABDOMEN: Soft and nontender. EXTREMITIES: No edema. NEUROLOGIC: Awake, alert, oriented x3. LABORATORY AND DIAGNOSTIC DATA: WBC 17.5, hemoglobin 16.5, hematocrit 49.2, and platelets is 279. Sodium 140, potassium 4.4, chloride 106, bicarb 26, BUN 9, creatinine 1.1, glucose 136. Bilirubin is slightly elevated at the time of admission . Chest x-ray showed perihilar infiltrate. CT scan of the chest with contrast did not show pulmonary emboli but showed some pulmonary infiltrate. IMPRESSION: Sepsis with leukocytosis and tachycardia, source the patient seems to have pneumonia more likely atypical, has cocaine abuse, marijuana abuse. RECOMMENDATION: We will continue with current antibiotics, ceftriaxone and azithromycin. We will follow up the clinical course. At the end of my exam, I thank Dr. Zamora for involving me in the care of this patient. Patricio Mak M.D. DR: Brooklynn JOB#: [id number] CC: CHRISTOPHER
--- NOTE | 2018-11-02 19:09 | NUR ---
NURSE NOTES: The patient is stable without acute distress or shortness of breath. Will continue plan of care.
--- NOTE | 2018-11-02 19:30 | NUR ---
Received pt. awake and alert in no distress. Denies any paiin .and shortness of breath. Bed is at its lowest position. Call light within easy reach.
--- NOTE | 2018-11-02 19:55 | NUR ---
HAND-OFF: Report given to EDY Beebe. The patient is resting on the bed without acute distress or shortness of breath. The patient's bed in the lowest position, call light in reach, and fall and aspiration precaution reinforced. IV site intact and patent. Endorsed plan of care.
[2018-11-02] MEDS: Solu-MEDROL 125mg Inj IVP SCH (21:43)
[2018-11-02] MEDS: Heparin 5000 units/ml inj SUBQ SCH (21:45)
[2018-11-03 00:03] VITALS: BP 125/78
--- NOTE | 2018-11-03 02:55 | NUR ---
REPORT GIVEN TO CESAR SNOW. PATIENT STABLE AND RESTING ON BED. NAD.
--- NOTE | 2018-11-03 02:59 | NUR ---
NURSE NOTES: Received patient asleep, lying in semi valera's; resting comfortably. No signs of acute cardio respiratory distress noted. Checked IV site intact and flushed. No erythema, bleeding or infiltration noted. Bed at lowest position, brakes on, siderails x3. Call light within reach. Will continue to monitor.
--- NOTE | 2018-11-03 03:02 | NUR ---
NURSE NOTES: Rested well, no significant change of condition noted throughout the night. Safety maintained.
[2018-11-03] MEDS: Albuterol/Ipratropium 3ml neb HHN SCH ×6 (03:11→23:51)
--- NOTE | 2018-11-03 03:18 | Cardiology Progress Note ---
Assessment/Plan Assessment/Plan The patient is seen and examined, full consult note will be dictated shortly. Objective Last 24 Hour Vital Signs Date Time Temp Pulse Resp B/P (MAP) Pulse Ox O2 Delivery O2 Flow Rate FiO2 11/03/18 03:11 103 20 97 Nasal Cannula 3.0 32 11/03/18 00:08 90 11/03/18 00:03 98.3 87 18 125/78 (94) 96 11/02/18 23:36 90 20 98 Nasal Cannula 3.0 32 11/02/18 23:26 87 22 94 Nasal Cannula 3.0 32 11/02/18 21:00 Nasal Cannula 2.0 11/02/18 20:00 97.9 93 18 140/86 (104) 11/02/18 20:00 87 11/02/18 19:52 97 20 99 Nasal Cannula 3.0 32 11/02/18 19:42 95 Nasal Cannula 3.0 32 11/02/18 19:42 95 20 95 Nasal Cannula 3.0 32 11/02/18 16:00 89 11/02/18 16:00 98.2 94 20 119/71 (87) 96 11/02/18 12:00 98.1 102 20 125/78 (94) 95 11/02/18 12:00 91 11/02/18 09:00 Nasal Cannula 2.0 11/02/18 08:00 99 11/02/18 08:00 97.4 97 18 134/77 (96) 95 11/02/18 04:00 98.1 105 18 133/70 (91) 96 11/02/18 04:00 102 Intake and Output 11/02/18 11/03/18 18:59 06:59 Intake Total 360 ml Balance 360 ml Intake Oral 360 ml # Voids 3 Laboratory Tests Test 11/02/18 06:34 11/02/18 10:10 White Blood Count 15.8 K/UL (4.8-10.8) H 17.5 K/UL (4.8-10.8) H Red Blood Count 5.10 M/UL (4.70-6.10) 5.52 M/UL (4.70-6.10) Hemoglobin 15.7 G/DL (14.2-18.0) 16.5 G/DL (14.2-18.0) Hematocrit 45.3 % (42.0-52.0) 49.2 % (42.0-52.0) Mean Corpuscular Volume 89 FL (80-99) 89 FL (80-99) Mean Corpuscular Hemoglobin 30.7 PG (27.0-31.0) 29.9 PG (27.0-31.0) Mean Corpuscular Hemoglobin Concent 34.6 G/DL (32.0-36.0) 33.5 G/DL (32.0-36.0) Red Cell Distribution Width 12.0 % (11.6-14.8) 12.0 % (11.6-14.8) Platelet Count 254 K/UL (150-450) 279 K/UL (150-450) Mean Platelet Volume 7.1 FL (6.5-10.1) 7.2 FL (6.5-10.1) Neutrophils (%) (Auto) % (45.0-75.0) % (45.0-75.0) Lymphocytes (%) (Auto) % (20.0-45.0) % (20.0-45.0) Monocytes (%) (Auto) % (1.0-10.0) % (1.0-10.0) Eosinophils (%) (Auto) % (0.0-3.0) % (0.0-3.0) Basophils (%) (Auto) % (0.0-2.0) % (0.0-2.0) Differential Total Cells Counted 100 100 Neutrophils % (Manual) 95 % (45-75) H 92 % (45-75) H Lymphocytes % (Manual) 3 % (20-45) L 7 % (20-45) L Monocytes % (Manual) 2 % (1-10) 1 % (1-10) Eosinophils % (Manual) 0 % (0-3) 0 % (0-3) Basophils % (Manual) 0 % (0-2) 0 % (0-2) Band Neutrophils 0 % (0-8) 0 % (0-8) Platelet Estimate Adequate Adequate Platelet Morphology Normal Normal Sodium Level 140 MMOL/L (136-145) 140 MMOL/L (136-145) Potassium Level 3.9 MMOL/L (3.5-5.1) 4.4 MMOL/L (3.5-5.1) Chloride Level 106 MMOL/L (98-107) 106 MMOL/L (98-107) Carbon Dioxide Level 24 MMOL/L (21-32) 26 MMOL/L (21-32) Anion Gap 10 mmol/L (5-15) 9 mmol/L (5-15) Blood Urea Nitrogen 9 mg/dL (7-18) 9 mg/dL (7-18) Creatinine 0.9 MG/DL (0.55-1.30) 1.1 MG/DL (0.55-1.30) Estimat Glomerular Filtration Rate > 60 mL/min (>60) > 60 mL/min (>60) Glucose Level 155 MG/DL (74-106) H 136 MG/DL (74-106) H Calcium Level 9.1 MG/DL (8.5-10.1) 9.6 MG/DL (8.5-10.1) Total Bilirubin 1.0 MG/DL (0.2-1.0) Aspartate Amino Transf (AST/SGOT) 13 U/L (15-37) L Alanine Aminotransferase (ALT/SGPT) 25 U/L (12-78) Alkaline Phosphatase 97 U/L (46-116) Total Protein 7.1 G/DL (6.4-8.2) Albumin 3.3 G/DL (3.4-5.0) L Globulin 3.8 g/dL Albumin/Globulin Ratio 0.9 (1.0-2.7) L HIV (1&2) Antibody Rapid Negative (NEGATIVE) Basil Gupta MD Nov 03, 2018 03:18
[2018-11-03 04:00] VITALS: BP 129/64
--- NOTE | 2018-11-03 05:00 | Consultation ---
DATE OF CONSULTATION: 11/02/2018 CARDIOLOGY CONSULTATION CONSULTING PHYSICIAN: Basil Gupta M.D. REFERRING PHYSICIAN: Devika Zamora M.D. REASON FOR CONSULTATION: Management of shortness of breath. HISTORY OF PRESENT ILLNESS: The patient is a very unfortunate 28-year-old gentleman who presents to the hospital with complaints of chest discomfort after using cocaine two days prior to this admission. The patient had associated shortness of breath and nonproductive cough. At the time of arrival to this facility, blood pressure was 163/81 mmHg and heart rate was 120. In the emergency department, the patient was found to have leukocytosis and presence of infiltration. The patient was diagnosed with pneumonia. Urine toxicology screen confirmed presence of the cocaine and THC. A 12-lead electrocardiogram in the emergency department revealed sinus tachycardia at rate of 117 with right axis deviation. No acute ischemic features. CT angiography of the chest ruled out pulmonary embolism, aortic dissection, or aneurysm. The patient was admitted to the hospital for further evaluation and management. Cardiology consultation was made for management of tachycardia and shortness of breath. PAST MEDICAL HISTORY: None. ALLERGIES: No known drug allergies. FAMILY HISTORY: No premature coronary artery disease in the first-degree relatives. MEDICATIONS: List of medications at home, none. SOCIAL HISTORY: Polysubstance drug abuse including marijuana and cocaine. REVIEW OF SYSTEMS: HEENT: Denies any headache, diplopia, or blurred vision. CONSTITUTIONAL: Denies any fever, chills, night sweats, or weight loss. CARDIOVASCULAR: Had chest pain and shortness of breath, but no PND, orthopnea, or leg swelling. PULMONARY: Nonproductive cough and shortness of breath, but no wheezing. GASTROINTESTINAL: Denies any nausea, vomiting, diarrhea, constipation, abdominal pain, or GI bleeding. GENITOURINARY: Denies any hematuria, dysuria, or incontinence. PHYSICAL EXAMINATION: VITAL SIGNS: Blood pressure 163/81, pulse of 120, respirations of 37, temperature 98.6 degrees Fahrenheit, and O2 saturation 96% on room air. GENERAL: He is a very unfortunate 28-year-old gentleman, in no apparent respiratory distress. HEENT: Atraumatic and normocephalic. Anicteric. Pupils are equal, round, and reactive to light and accommodation. Extraocular muscles are intact. NECK: JVP less than 5 cm. No carotid bruit. Carotid upstroke is 2+ bilaterally. CARDIOVASCULAR: Normal S1 and S2. Regular rate and rhythm. Tachycardic. PMI is at fourth intercostal space at the midclavicular line. LUNGS: Clear to auscultation bilaterally. ABDOMEN: Soft, nontender, and nondistended. No hepatosplenomegaly. Positive bowel sounds. EXTREMITIES: No evidence of edema, clubbing, or cyanosis. LABORATORY FINDINGS: Sodium was 138, potassium was 3.4, chloride 103, bicarbonate 25, BUN 9, creatinine 1.0, glucose 104, and calcium 9.1. Troponin I was 0. ProBNP was 74. WBC 21.3, hemoglobin 17.3, hematocrit 47.7, and platelet count 279,000. INR was not measured. D-dimer was 0.76. ASSESSMENT AND PLAN: The patient is a very unfortunate 28-year-old gentleman who is seen in Cardiology consultation. 1. Dyspnea, most likely secondary to pneumonia given leukocytosis, clinical correlation with nonproductive cough and polysubstance abuse. 1.1. Beta-natriuretic peptide is within normal limits and essentially rules out congestive heart failure. 2. Sinus tachycardia, most likely secondary to cocaine use. 2.1. We will obtain 2D echocardiography for assessment of LV systolic and diastolic function. 2.2. Therapeutic and diagnostic decision will be based on results of 2D echocardiography. I would like to thank, Dr. Zamora, for the courtesy of this consultation. Basil Gupta M.D. DR: MANPREET JOB#: [id number] CC:
[2018-11-03 05:59] LABS: HEMATOCRIT 44.9 % (42.0-52.0); HEMOGLOBIN 15.4 G/DL (14.2-18.0); MEAN CORPUSCULAR VOLUME 89 FL (80-99); PLATELET COUNT 269 K/UL (150-450); RED BLOOD COUNT 5.06 M/UL (4.70-6.10); RED CELL DISTRIBUTION WIDTH 11.9 % (11.6-14.8); WHITE BLOOD COUNT 13.4 K/UL (4.8-10.8)
[2018-11-03 06:23] LABS: ANION GAP 11 mmol/L (5-15); BLOOD UREA NITROGEN 14 mg/dL (7-18); CARBON DIOXIDE 23 MMOL/L (21-32); CHLORIDE 106 MMOL/L (98-107); POTASSIUM 3.6 MMOL/L (3.5-5.1); SODIUM 140 MMOL/L (136-145)
--- NOTE | 2018-11-03 07:48 | NUR ---
HAND-OFF: Report given to EDY Cartagena. Plan of care endorsed.
--- NOTE | 2018-11-03 07:52 | NUR ---
NURSE NOTES: Report received from EDY Paulino. Pt shows no signs of distress, A+Ox4, denies pain/SOB. Respirations are even and unlabored on 2 L NC. IV site is patent and intact and running fluids @ prescribed rate. Bed is at lowest position, brakes engaged, siderails x2, bed alarm on, and call light within reach. Pt is in stable condition at this time; will continue to monitor.
[2018-11-03 08:00] VITALS: BP 116/66
[2018-11-03] MEDS: Solu-MEDROL 125mg Inj IVP SCH (09:15)
[2018-11-03] MEDS: Heparin 5000 units/ml inj SUBQ SCH ×2 (09:17→23:31)
--- NOTE | 2018-11-03 09:41 | General Progress Note ---
Assessment/Plan Assessment/Plan: (1) Bronchospasm (2) Pneumonitis (3) Cocaine abuse (4) Alcohol abuse and withdrawals Patient to be continued on Ativan and Tylenol D/w Dr. Yuan and he concurred. Subjective Date patient seen: Nov 03, 2018 Time patient seen: 08:45 - am Constitutional: Reports: no symptoms HEENT: Reports: no symptoms Cardiovascular: Reports: no symptoms Respiratory: Reports: cough Gastrointestinal/Abdominal: Reports: no symptoms Genitourinary: Reports: no symptoms Neurologic/Psychiatric: Reports: no symptoms Endocrine: Reports: no symptoms Hematologic/Lymphatic: Reports: no symptoms Allergies: Coded Allergies: No Known Allergies (Unverified , 11/01/18) Subjective Patient doing well no pain at his time. Objective Last 24 Hour Vital Signs Date Time Temp Pulse Resp B/P (MAP) Pulse Ox O2 Delivery O2 Flow Rate FiO2 11/03/18 08:00 98.2 92 20 116/66 (83) 96 11/03/18 07:41 95 20 98 Nasal Cannula 3.0 32 11/03/18 07:36 85 20 97 Room Air 21 11/03/18 07:35 97 Room Air 21 11/03/18 04:00 82 11/03/18 04:00 98.0 88 18 129/64 (85) 96 11/03/18 03:21 100 20 99 Nasal Cannula 3.0 32 11/03/18 03:11 103 20 97 Nasal Cannula 3.0 32 11/03/18 00:08 90 11/03/18 00:03 98.3 87 18 125/78 (94) 96 11/02/18 23:36 90 20 98 Nasal Cannula 3.0 32 11/02/18 23:26 87 22 94 Nasal Cannula 3.0 32 11/02/18 21:00 Nasal Cannula 2.0 11/02/18 20:00 97.9 93 18 140/86 (104) 11/02/18 20:00 87 11/02/18 19:52 97 20 99 Nasal Cannula 3.0 32 11/02/18 19:42 95 Nasal Cannula 3.0 32 11/02/18 19:42 95 20 95 Nasal Cannula 3.0 32 11/02/18 16:00 89 11/02/18 16:00 98.2 94 20 119/71 (87) 96 11/02/18 12:00 98.1 102 20 125/78 (94) 95 11/02/18 12:00 91 Intake and Output 11/02/18 11/03/18 19:00 07:00 Intake Total 360 ml 246 ml Balance 360 ml 246 ml Intake Oral 360 ml IV Total 246 ml # Voids 3 2 # Bowel Movements 1 Laboratory Tests 11/02/18 10:10: White Blood Count 17.5H, Red Blood Count 5.52, Hemoglobin 16.5, Hematocrit 49.2 , Mean Corpuscular Volume 89, Mean Corpuscular Hemoglobin 29.9, Mean Corpuscular Hemoglobin Concent 33.5, Red Cell Distribution Width 12.0, Platelet Count 279, Mean Platelet Volume 7.2, Neutrophils (%) (Auto) , Lymphocytes (%) ( Auto) , Monocytes (%) (Auto) , Eosinophils (%) (Auto) , Basophils (%) (Auto) , Differential Total Cells Counted 100, Neutrophils % (Manual) 92H, Lymphocytes % (Manual) 7L, Monocytes % (Manual) 1, Eosinophils % (Manual) 0, Basophils % ( Manual) 0, Band Neutrophils 0, Platelet Estimate Adequate, Platelet Morphology Normal, Sodium Level 140, Potassium Level 4.4, Chloride Level 106, Carbon Dioxide Level 26, Anion Gap 9, Blood Urea Nitrogen 9, Creatinine 1.1, Estimat Glomerular Filtration Rate > 60, Glucose Level 136H, Calcium Level 9.6, HIV (1&2 ) Antibody Rapid Negative 11/03/18 05:36: White Blood Count 13.4H, Red Blood Count 5.06, Hemoglobin 15.4, Hematocrit 44.9 , Mean Corpuscular Volume 89, Mean Corpuscular Hemoglobin 30.4, Mean Corpuscular Hemoglobin Concent 34.3, Red Cell Distribution Width 11.9, Platelet Count 269, Mean Platelet Volume 6.9, Neutrophils (%) (Auto) , Lymphocytes (%) ( Auto) , Monocytes (%) (Auto) , Eosinophils (%) (Auto) , Basophils (%) (Auto) , Sodium Level 140, Potassium Level 3.6, Chloride Level 106, Carbon Dioxide Level 23, Anion Gap 11, Blood Urea Nitrogen 14, Creatinine 1.0, Estimat Glomerular Filtration Rate > 60, Glucose Level 150H, Calcium Level 9.0 Height (Feet): 5 Height (Inches): 6.00 Weight (Pounds): 150 General Appearance: no apparent distress, alert EENT: PERRL/EOMI, normal ENT inspection Neck: non-tender, normal alignment Cardiovascular: normal rate, regular rhythm Respiratory/Chest: decreased breath sounds Abdomen: non tender, soft Extremities: non-tender Edema: no edema noted Generalized Neurologic: alert, oriented x 3 Skin: normal pigmentation Abebe Padilla Nov 03, 2018 09:41
--- NOTE | 2018-11-03 11:58 | NUR ---
*-* INSURANCE *-* AL CLINICALS AND REVIEWS HAVE BEEN FAXED TO: [employer]LEJAN[employer] GAUTHIER FAX ALL CLINICALS TO [phone]
[2018-11-03 12:00] VITALS: BP 133/74
--- NOTE | 2018-11-03 13:21 | Pulmonology Progress Note ---
Assessment/Plan Assessment/Plan Pulmonary Progress Note HPI Patient is a 28-year-old male admitted with chest discomfort shortness of breath and non productive cough, noted to have Pneumonia, patient reports last using cocaine approximately 3 days prior to arrival. He denies any prior history of HIV or other medical conditions. He states he has prior history of allergy to cocaine. Patient reports having increased chest discomfort. Denies hemoptysis, no previous Tuberculosis Less SOB Allergies: No Known Allergies Past Medical History: Cocaine use All Other Systems: negative except mentioned in HPI Physical Exam Vital Signs Noted General Appearance: normal inspection, alert, GCS 15, moderate distress Head: atraumatic ENT: normal inspection, moist mm, normal voice Neck: normal inspection, no LN Respiratory: normal inspection, CTAB Cardiovascular #1: regular rate, rhythm, normal HS1, HS2, no edema Gastrointestinal: normal inspection, normal bowel sounds, non tender, soft, no guarding, no hernia Genitourinary: no CVA tenderness Musculoskeletal: normal inspection, back normal, normal range of motion Neurologic: normal inspection, alert, oriented x3, responsive, no focal signs Impression: Pneumonia, bilateral patchy infiltrates Cocaine use Chest pain- no PE/Aortic dissection on CTA chest Wheezing Plan Ceftriaxone and Azithromycin IV steroids [employer] meds PPX HIV serology negative Labs Test 11/01/18 21:00 11/01/18 21:30 White Blood Count 21.3 K/UL (4.8-10.8) Red Blood Count 5.67 M/UL (4.70-6.10) Hemoglobin 17.3 G/DL (14.2-18.0) Hematocrit 47.7 % (42.0-52.0) Mean Corpuscular Volume 84 FL (80-99) Mean Corpuscular Hemoglobin 30.5 PG (27.0-31.0) Mean Corpuscular Hemoglobin Concent 36.3 G/DL (32.0-36.0) Red Cell Distribution Width 11.0 % (11.6-14.8) Platelet Count 279 K/UL (150-450) Mean Platelet Volume 6.3 FL (6.5-10.1) Neutrophils (%) (Auto) % (45.0-75.0) Lymphocytes (%) (Auto) % (20.0-45.0) Monocytes (%) (Auto) % (1.0-10.0) Eosinophils (%) (Auto) % (0.0-3.0) Basophils (%) (Auto) % (0.0-2.0) D-Dimer 0.76 mg/L FEU (0.00-0.49) Sodium Level 138 MMOL/L (136-145) Potassium Level 3.4 MMOL/L (3.5-5.1) Chloride Level 103 MMOL/L (98-107) Carbon Dioxide Level 25 MMOL/L (21-32) Anion Gap 10 mmol/L (5-15) Blood Urea Nitrogen 9 mg/dL (7-18) Creatinine 1.0 MG/DL (0.55-1.30) Estimat Glomerular Filtration Rate > 60 mL/min (>60) Glucose Level 104 MG/DL (74-106) Calcium Level 9.1 MG/DL (8.5-10.1) Urine Color Yellow Urine Appearance Clear Urine pH 7 (4.5-8.0) Urine Specific [place] 1.010 (1.005-1.035) Urine Protein Negative (NEGATIVE) Urine Glucose (UA) Negative (NEGATIVE) Urine Ketones 4+ (NEGATIVE) Urine Blood Negative (NEGATIVE) Urine Nitrite Negative (NEGATIVE) Urine Bilirubin Negative (NEGATIVE) Urine Urobilinogen 4 MG/DL (0.0-1.0) Urine Leukocyte Esterase Negative (NEGATIVE) Urine Opiates Screen Negative (NEGATIVE) Urine Barbiturates Screen Negative (NEGATIVE) Phencyclidine (PCP) Screen Negative (NEGATIVE) Urine Amphetamines Screen Negative (NEGATIVE) Urine Benzodiazepines Screen Negative (NEGATIVE) Urine Cocaine Screen Positive (NEGATIVE) Urine Marijuana (THC) Screen Positive (NEGATIVE) Subjective ROS Limited/Unobtainable: No Allergies: Coded Allergies: No Known Allergies (Unverified , 11/01/18) Objective Last 24 Hour Vital Signs Date Time Temp Pulse Resp B/P (MAP) Pulse Ox O2 Delivery O2 Flow Rate FiO2 11/03/18 12:42 99 20 97 Room Air 21 11/03/18 12:30 89 20 96 Nasal Cannula 2.0 28 11/03/18 12:00 97.9 88 18 133/74 (93) 96 11/03/18 08:00 98.2 92 20 116/66 (83) 96 11/03/18 08:00 Nasal Cannula 2.0 11/03/18 08:00 85 11/03/18 07:41 95 20 98 Nasal Cannula 3.0 32 11/03/18 07:36 85 20 97 Room Air 21 11/03/18 07:35 97 Room Air 21 11/03/18 04:00 82 11/03/18 04:00 98.0 88 18 129/64 (85) 96 11/03/18 03:21 100 20 99 Nasal Cannula 3.0 32 11/03/18 03:11 103 20 97 Nasal Cannula 3.0 32 11/03/18 00:08 90 11/03/18 00:03 98.3 87 18 125/78 (94) 96 11/02/18 23:36 90 20 98 Nasal Cannula 3.0 32 11/02/18 23:26 87 22 94 Nasal Cannula 3.0 32 11/02/18 21:00 Nasal Cannula 2.0 11/02/18 20:00 97.9 93 18 140/86 (104) 11/02/18 20:00 87 11/02/18 19:52 97 20 99 Nasal Cannula 3.0 32 11/02/18 19:42 95 Nasal Cannula 3.0 32 11/02/18 19:42 95 20 95 Nasal Cannula 3.0 32 11/02/18 16:00 89 11/02/18 16:00 98.2 94 20 119/71 (87) 96 Intake and Output 11/02/18 11/03/18 19:00 07:00 Intake Total 360 ml 246 ml Balance 360 ml 246 ml Intake Oral 360 ml IV Total 246 ml # Voids 3 2 # Bowel Movements 1 Laboratory Tests 11/03/18 05:36: White Blood Count 13.4H, Red Blood Count 5.06, Hemoglobin 15.4, Hematocrit 44.9 , Mean Corpuscular Volume 89, Mean Corpuscular Hemoglobin 30.4, Mean Corpuscular Hemoglobin Concent 34.3, Red Cell Distribution Width 11.9, Platelet Count 269, Mean Platelet Volume 6.9, Neutrophils (%) (Auto) , Lymphocytes (%) ( Auto) , Monocytes (%) (Auto) , Eosinophils (%) (Auto) , Basophils (%) (Auto) , Sodium Level 140, Potassium Level 3.6, Chloride Level 106, Carbon Dioxide Level 23, Anion Gap 11, Blood Urea Nitrogen 14, Creatinine 1.0, Estimat Glomerular Filtration Rate > 60, Glucose Level 150H, Calcium Level 9.0 Current Medications Medications (Trade) Dose Ordered Sig/Warren Route PRN Reason Start Time Stop Time Status Last Admin Dose Admin Acetaminophen (Tylenol) 650 mg Q4H PRN ORAL Mild Pain/Temp > 100.5 11/02/18 09:30 12/02/18 09:29 11/02/18 10:37 Albuterol/ Ipratropium (Albuterol/ Ipratropium) 3 ml Q4HRT HHN 11/02/18 15:00 11/07/18 14:59 11/03/18 12:38 Azithromycin 500 mg/Dextrose 275 ml @ 275 mls/hr Q24HRS IV 11/02/18 13:00 11/08/18 13:59 11/02/18 13:01 Ceftriaxone Sodium 1 gm/ Dextrose 55 ml @ 110 mls/hr Q24H IVPB 11/02/18 12:00 11/09/18 11:59 11/02/18 12:05 Heparin Sodium (Porcine) (Heparin 5000 units/ml) 5,000 units Q12HR SUBQ 11/02/18 21:00 12/02/18 20:59 11/03/18 09:17 Hydralazine HCl (Apresoline) 25 mg Q6H PRN ORAL For High Blood Pressure 11/02/18 10:00 12/02/18 09:59 Iopamidol (Isovue-370 150ml) 150 ml NOW PRN INJ Radiology Procedure 11/01/18 22:30 11/03/18 22:28 Lorazepam (Ativan) 1 mg Q4H PRN ORAL For Anxiety/agitation 11/02/18 09:30 11/09/18 09:29 Methylprednisolone Sodium Succinate (Solu-MEDROL) 60 mg EVERY 12 HOURS IVP 11/02/18 21:00 12/02/18 20:59 11/03/18 09:15 Ondansetron HCl (Zofran) 4 mg Q8H PRN IVP Nausea & Vomiting 11/02/18 10:00 12/02/18 09:59 Sodium Chloride 1,000 ml @ 70 mls/hr [id number] IV 11/02/18 01:45 12/02/18 01:44 11/03/18 03:29 Tommy Jacobs MD Nov 03, 2018 13:21
--- NOTE | 2018-11-03 13:30 | Hematology/Onc Progress Note ---
Assessment/Plan Assessment/Plan Assessment and Recs # Leukocytosis/elevated white blood cell count, unspecified likely related to underlying stress reaction, smoking v drug use (Also receiving steriods) --> have reviewed peripheral smear and bandemia/neutrophilia noted --> continue antibiotics if they have been started by ID team(mary) --> monitor for resolution trend 21k-->16-->18->13 # Chest pain likely due to atypical pneumonitis --> as per pulm --> on steriods # Bronchospasm, acute --> likely due to pneumonitos # Tachycardia now improved --> ivf given # DVT ppx heparin sq The timing of this note does not necessarily reflect the time of the patient was seen. GREATLY APPRECIATE CONSULTATION. Subjective Constitutional: Denies: no symptoms, chills, fever, malaise, weakness, other HEENT: Denies: no symptoms, eye pain, blurred vision, tearing, double vision, ear pain, ear discharge, nose pain, nose congestion, throat pain, throat swelling, mouth pain, mouth swelling, other Cardiovascular: Denies: no symptoms, chest pain, edema, irregular heart rate, lightheadedness, palpitations, syncope, other Respiratory: Denies: no symptoms, cough, shortness of breath, SOB with excertion, SOB at rest, sputum, wheezing, other Gastrointestinal/Abdominal: Denies: no symptoms, abdomen distended, abdominal pain, black stools, tarry stools, blood in stool, constipated, diarrhea, difficulty swallowing, nausea, poor appetite, poor fluid intake, rectal bleeding , vomiting, other Genitourinary: Denies: no symptoms, burning, discharge, frequency, flank pain, hematuria, incontinence, pain, urgency, other Neurologic/Psychiatric: Denies: no symptoms, anxiety, depressed, emotional problems, headache, numbness, paresthesia, pre-existing deficit, seizure, tingling, tremors, weakness, other Endocrine: Denies: no symptoms, excessive sweating, flushing, intolerance to cold, intolerance to heat, increased hunger, increased thirst, increased urine, unexplained weight gain, unexplained weight loss, other Allergies: Coded Allergies: No Known Allergies (Unverified , 11/01/18) Subjective 11/03: in stable condition, no f/c, no night sweats, wbc better Objective Objective Current Medications Medications (Trade) Dose Ordered Sig/Warren Route PRN Reason Start Time Stop Time Status Last Admin Dose Admin Acetaminophen (Tylenol) 650 mg Q4H PRN ORAL Mild Pain/Temp > 100.5 11/02/18 09:30 12/02/18 09:29 11/02/18 10:37 Albuterol/ Ipratropium (Albuterol/ Ipratropium) 3 ml Q4HRT HHN 11/02/18 15:00 11/07/18 14:59 11/03/18 12:38 Azithromycin 500 mg/Dextrose 275 ml @ 275 mls/hr Q24HRS IV 11/02/18 13:00 11/08/18 13:59 11/02/18 13:01 Ceftriaxone Sodium 1 gm/ Dextrose 55 ml @ 110 mls/hr Q24H IVPB 11/02/18 12:00 11/09/18 11:59 11/02/18 12:05 Heparin Sodium (Porcine) (Heparin 5000 units/ml) 5,000 units Q12HR SUBQ 11/02/18 21:00 12/02/18 20:59 11/03/18 09:17 Hydralazine HCl (Apresoline) 25 mg Q6H PRN ORAL For High Blood Pressure 11/02/18 10:00 12/02/18 09:59 Iopamidol (Isovue-370 150ml) 150 ml NOW PRN INJ Radiology Procedure 11/01/18 22:30 11/03/18 22:28 Lorazepam (Ativan) 1 mg Q4H PRN ORAL For Anxiety/agitation 11/02/18 09:30 11/09/18 09:29 Methylprednisolone Sodium Succinate (Solu-MEDROL) 60 mg EVERY 12 HOURS IVP 11/02/18 21:00 12/02/18 20:59 11/03/18 09:15 Ondansetron HCl (Zofran) 4 mg Q8H PRN IVP Nausea & Vomiting 11/02/18 10:00 12/02/18 09:59 Sodium Chloride 1,000 ml @ 70 mls/hr [id number] IV 11/02/18 01:45 12/02/18 01:44 11/03/18 03:29 Last 24 Hour Vital Signs Date Time Temp Pulse Resp B/P (MAP) Pulse Ox O2 Delivery O2 Flow Rate FiO2 11/03/18 12:42 99 20 97 Room Air 21 11/03/18 12:30 89 20 96 Nasal Cannula 2.0 28 11/03/18 12:00 97.9 88 18 133/74 (93) 96 11/03/18 08:00 98.2 92 20 116/66 (83) 96 11/03/18 08:00 Nasal Cannula 2.0 11/03/18 08:00 85 11/03/18 07:41 95 20 98 Nasal Cannula 3.0 32 11/03/18 07:36 85 20 97 Room Air 21 11/03/18 07:35 97 Room Air 21 11/03/18 04:00 82 11/03/18 04:00 98.0 88 18 129/64 (85) 96 11/03/18 03:21 100 20 99 Nasal Cannula 3.0 32 11/03/18 03:11 103 20 97 Nasal Cannula 3.0 32 11/03/18 00:08 90 11/03/18 00:03 98.3 87 18 125/78 (94) 96 11/02/18 23:36 90 20 98 Nasal Cannula 3.0 32 11/02/18 23:26 87 22 94 Nasal Cannula 3.0 32 11/02/18 21:00 Nasal Cannula 2.0 11/02/18 20:00 97.9 93 18 140/86 (104) 11/02/18 20:00 87 11/02/18 19:52 97 20 99 Nasal Cannula 3.0 32 11/02/18 19:42 95 Nasal Cannula 3.0 32 11/02/18 19:42 95 20 95 Nasal Cannula 3.0 32 11/02/18 16:00 89 11/02/18 16:00 98.2 94 20 119/71 (87) 96 11/02/18 12:00 98.1 102 20 125/78 (94) 95 11/02/18 12:00 91 11/02/18 09:00 Nasal Cannula 2.0 11/02/18 08:00 99 11/02/18 08:00 97.4 97 18 134/77 (96) 95 11/02/18 04:00 98.1 105 18 133/70 (91) 96 11/02/18 04:00 102 11/02/18 02:32 103 11/02/18 01:52 96.9 105 18 127/76 (93) 96 11/02/18 01:51 Room Air 11/02/18 00:37 98.5 112 21 132/72 97 Simple Mask 5.0 11/02/18 00:15 98.6 110 21 138/72 97 Room Air 5.0 11/01/18 22:46 124 21 97 Nasal Cannula 2.0 11/01/18 22:36 122 17 95 Nasal Cannula 2.0 11/01/18 22:04 122 26 98 Nasal Cannula 2.0 11/01/18 21:55 123 25 97 Nasal Cannula 2.0 11/01/18 21:54 123 25 97 Nasal Cannula 2.0 11/01/18 21:45 125 33 98 Nasal Cannula 2.0 11/01/18 21:44 125 34 98 Nasal Cannula 2.0 11/01/18 21:34 120 26 94 Nasal Cannula 2.0 11/01/18 21:32 120 26 94 Nasal Cannula 2.0 11/01/18 21:20 120 37 Room Air 11/01/18 21:20 98.6 120 37 152/79 89 Room Air 11/01/18 21:15 98.6 120 37 163/81 (108) 86 Room Air Intake and Output 11/02/18 11/03/18 19:00 07:00 Intake Total 360 ml 246 ml Balance 360 ml 246 ml Intake Oral 360 ml IV Total 246 ml # Voids 3 2 # Bowel Movements 1 Labs Test 11/01/18 21:00 11/01/18 21:30 11/01/18 22:30 11/02/18 00:37 White Blood Count 21.3 K/UL (4.8-10.8) Red Blood Count 5.67 M/UL (4.70-6.10) Hemoglobin 17.3 G/DL (14.2-18.0) Hematocrit 47.7 % (42.0-52.0) Mean Corpuscular Volume 84 FL (80-99) Mean Corpuscular Hemoglobin 30.5 PG (27.0-31.0) Mean Corpuscular Hemoglobin Concent 36.3 G/DL (32.0-36.0) Red Cell Distribution Width 11.0 % (11.6-14.8) Platelet Count 279 K/UL (150-450) Mean Platelet Volume 6.3 FL (6.5-10.1) Neutrophils (%) (Auto) % (45.0-75.0) Lymphocytes (%) (Auto) % (20.0-45.0) Monocytes (%) (Auto) % (1.0-10.0) Eosinophils (%) (Auto) % (0.0-3.0) Basophils (%) (Auto) % (0.0-2.0) Differential Total Cells Counted 100 Neutrophils % (Manual) 85 % (45-75) Lymphocytes % (Manual) 10 % (20-45) Monocytes % (Manual) 2 % (1-10) Eosinophils % (Manual) 1 % (0-3) Basophils % (Manual) 1 % (0-2) Band Neutrophils 1 % (0-8) Platelet Estimate Adequate Platelet Morphology Normal Red Blood Cell Morphology Normal D-Dimer 0.76 mg/L FEU (0.00-0.49) Sodium Level 138 MMOL/L (136-145) Potassium Level 3.4 MMOL/L (3.5-5.1) Chloride Level 103 MMOL/L (98-107) Carbon Dioxide Level 25 MMOL/L (21-32) Anion Gap 10 mmol/L (5-15) Blood Urea Nitrogen 9 mg/dL (7-18) Creatinine 1.0 MG/DL (0.55-1.30) Estimat Glomerular Filtration Rate > 60 mL/min (>60) Glucose Level 104 MG/DL (74-106) Calcium Level 9.1 MG/DL (8.5-10.1) Total Bilirubin 2.0 MG/DL (0.2-1.0) Direct Bilirubin 0.4 MG/DL (0.0-0.3) Aspartate Amino Transf (AST/SGOT) 16 U/L (15-37) Alanine Aminotransferase (ALT/SGPT) 31 U/L (12-78) Alkaline Phosphatase 111 U/L (46-116) Total Creatine Kinase 163 U/L (26-308) Creatine Kinase MB 2.3 NG/ML (0.0-3.6) Creatine Kinase MB Relative Index 1.4 Troponin I 0.000 ng/mL (0.000-0.056) Pro-B-Type Natriuretic Peptide 74 pg/mL (0-125) Total Protein 7.6 G/DL (6.4-8.2) Albumin 3.9 G/DL (3.4-5.0) Globulin 3.7 g/dL Albumin/Globulin Ratio 1.1 (1.0-2.7) Urine Color Yellow Urine Appearance Clear Urine pH 7 (4.5-8.0) Urine Specific Bolt 1.010 (1.005-1.035) Urine Protein Negative (NEGATIVE) Urine Glucose (UA) Negative (NEGATIVE) Urine Ketones 4+ (NEGATIVE) Urine Blood Negative (NEGATIVE) Urine Nitrite Negative (NEGATIVE) Urine Bilirubin Negative (NEGATIVE) Urine Urobilinogen 4 MG/DL (0.0-1.0) Urine Leukocyte Esterase Negative (NEGATIVE) Urine Opiates Screen Negative (NEGATIVE) Urine Barbiturates Screen Negative (NEGATIVE) Phencyclidine (PCP) Screen Negative (NEGATIVE) Urine Amphetamines Screen Negative (NEGATIVE) Urine Benzodiazepines Screen Negative (NEGATIVE) Urine Cocaine Screen Positive (NEGATIVE) Urine Marijuana (THC) Screen Positive (NEGATIVE) Lactic Acid Level 1.90 mmol/L (0.4-2.0) Arterial Blood pH 7.420 (7.350-7.450) Arterial Blood Partial Pressure CO2 37.8 mmHg (35.0-45.0) Arterial Blood Partial Pressure O2 90.7 mmHg (75.0-100.0) Arterial Blood HCO3 24.0 mmol/L (22.0-26.0) Arterial Blood Oxygen Saturation 96.2 % (95-100) Arterial Blood Base Excess -0.2 (-2-2) Enmanuel Test Positive Test 11/02/18 06:34 11/02/18 10:10 11/03/18 05:36 White Blood Count 15.8 K/UL (4.8-10.8) 17.5 K/UL (4.8-10.8) 13.4 K/UL (4.8-10.8) Red Blood Count 5.10 M/UL (4.70-6.10) 5.52 M/UL (4.70-6.10) 5.06 M/UL (4.70-6.10) Hemoglobin 15.7 G/DL (14.2-18.0) 16.5 G/DL (14.2-18.0) 15.4 G/DL (14.2-18.0) Hematocrit 45.3 % (42.0-52.0) 49.2 % (42.0-52.0) 44.9 % (42.0-52.0) Mean Corpuscular Volume 89 FL (80-99) 89 FL (80-99) 89 FL (80-99) Mean Corpuscular Hemoglobin 30.7 PG (27.0-31.0) 29.9 PG (27.0-31.0) 30.4 PG (27.0-31.0) Mean Corpuscular Hemoglobin Concent 34.6 G/DL (32.0-36.0) 33.5 G/DL (32.0-36.0) 34.3 G/DL (32.0-36.0) Red Cell Distribution Width 12.0 % (11.6-14.8) 12.0 % (11.6-14.8) 11.9 % (11.6-14.8) Platelet Count 254 K/UL (150-450) 279 K/UL (150-450) 269 K/UL (150-450) Mean Platelet Volume 7.1 FL (6.5-10.1) 7.2 FL (6.5-10.1) 6.9 FL (6.5-10.1) Neutrophils (%) (Auto) % (45.0-75.0) % (45.0-75.0) % (45.0-75.0) Lymphocytes (%) (Auto) % (20.0-45.0) % (20.0-45.0) % (20.0-45.0) Monocytes (%) (Auto) % (1.0-10.0) % (1.0-10.0) % (1.0-10.0) Eosinophils (%) (Auto) % (0.0-3.0) % (0.0-3.0) % (0.0-3.0) Basophils (%) (Auto) % (0.0-2.0) % (0.0-2.0) % (0.0-2.0) Differential Total Cells Counted 100 100 Neutrophils % (Manual) 95 % (45-75) 92 % (45-75) Lymphocytes % (Manual) 3 % (20-45) 7 % (20-45) Monocytes % (Manual) 2 % (1-10) 1 % (1-10) Eosinophils % (Manual) 0 % (0-3) 0 % (0-3) Basophils % (Manual) 0 % (0-2) 0 % (0-2) Band Neutrophils 0 % (0-8) 0 % (0-8) Platelet Estimate Adequate Adequate Platelet Morphology Normal Normal Sodium Level 140 MMOL/L (136-145) 140 MMOL/L (136-145) 140 MMOL/L (136-145) Potassium Level 3.9 MMOL/L (3.5-5.1) 4.4 MMOL/L (3.5-5.1) 3.6 MMOL/L (3.5-5.1) Chloride Level 106 MMOL/L (98-107) 106 MMOL/L (98-107) 106 MMOL/L (98-107) Carbon Dioxide Level 24 MMOL/L (21-32) 26 MMOL/L (21-32) 23 MMOL/L (21-32) Anion Gap 10 mmol/L (5-15) 9 mmol/L (5-15) 11 mmol/L (5-15) Blood Urea Nitrogen 9 mg/dL (7-18) 9 mg/dL (7-18) 14 mg/dL (7-18) Creatinine 0.9 MG/DL (0.55-1.30) 1.1 MG/DL (0.55-1.30) 1.0 MG/DL (0.55-1.30) Estimat Glomerular Filtration Rate > 60 mL/min (>60) > 60 mL/min (>60) > 60 mL/min (>60) Glucose Level 155 MG/DL (74-106) 136 MG/DL (74-106) 150 MG/DL (74-106) Calcium Level 9.1 MG/DL (8.5-10.1) 9.6 MG/DL (8.5-10.1) 9.0 MG/DL (8.5-10.1) Total Bilirubin 1.0 MG/DL (0.2-1.0) Aspartate Amino Transf (AST/SGOT) 13 U/L (15-37) Alanine Aminotransferase (ALT/SGPT) 25 U/L (12-78) Alkaline Phosphatase 97 U/L (46-116) Total Protein 7.1 G/DL (6.4-8.2) Albumin 3.3 G/DL (3.4-5.0) Globulin 3.8 g/dL Albumin/Globulin Ratio 0.9 (1.0-2.7) HIV (1&2) Antibody Rapid Negative (NEGATIVE) Height (Feet): 5 Height (Inches): 6.00 Weight (Pounds): 150 Objective Physical Exam: Vitals: reviewed General Appearance: NAD HEENT: normocephalic, atraumatic Neck: non-tender, normal alignment Respiratory/Chest: normal breath sounds bilaterally Cardiovascular/Chest: normal peripheral pulses, normal rate Abdomen: normal bowel sounds, soft, nontender Extremities: normal range of motion Rodrigo Al MD Nov 03, 2018 13:30
[2018-11-03] MEDS: Azithromycin 500 MG in D5W 275 ML IV SCH (13:50)
[2018-11-03] MEDS: cefTRIAXone 1 GM in D5W 55 ML IVPB SCH (13:51)
--- NOTE | 2018-11-03 15:23 | Infectious Diseases Prog Note ---
Assessment/Plan Assessment/Plan IMPRESSION: Sepsis with leukocytosis and tachycardia, Pneumonia more likely atypical, Cocaine abuse, Marijuana abuse. RECOMMENDATION: We will continue with current antibiotics, ceftriaxone and azithromycin Subjective ROS Limited/Unobtainable: No Constitutional: Reports: no symptoms, other - feels better HEENT: Reports: no symptoms Respiratory: Reports: productive cough Cardiovascular: Reports: no symptoms Gastrointestinal/Abdominal: Reports: no symptoms Genitourinary: Reports: no symptoms Allergies: Coded Allergies: No Known Allergies (Unverified , 11/01/18) Objective Vital Signs Last 24 Hour Vital Signs Date Time Temp Pulse Resp B/P (MAP) Pulse Ox O2 Delivery O2 Flow Rate FiO2 11/03/18 12:42 99 20 97 Room Air 21 11/03/18 12:30 89 20 96 Nasal Cannula 2.0 28 11/03/18 12:00 97.9 88 18 133/74 (93) 96 11/03/18 12:00 81 11/03/18 08:00 98.2 92 20 116/66 (83) 96 11/03/18 08:00 Nasal Cannula 2.0 11/03/18 08:00 85 11/03/18 07:41 95 20 98 Nasal Cannula 3.0 32 11/03/18 07:36 85 20 97 Room Air 21 11/03/18 07:35 97 Room Air 21 11/03/18 04:00 82 11/03/18 04:00 98.0 88 18 129/64 (85) 96 11/03/18 03:21 100 20 99 Nasal Cannula 3.0 32 11/03/18 03:11 103 20 97 Nasal Cannula 3.0 32 11/03/18 00:08 90 11/03/18 00:03 98.3 87 18 125/78 (94) 96 11/02/18 23:36 90 20 98 Nasal Cannula 3.0 32 11/02/18 23:26 87 22 94 Nasal Cannula 3.0 32 11/02/18 21:00 Nasal Cannula 2.0 11/02/18 20:00 97.9 93 18 140/86 (104) 11/02/18 20:00 87 11/02/18 19:52 97 20 99 Nasal Cannula 3.0 32 11/02/18 19:42 95 Nasal Cannula 3.0 32 11/02/18 19:42 95 20 95 Nasal Cannula 3.0 32 11/02/18 16:00 89 11/02/18 16:00 98.2 94 20 119/71 (87) 96 Height (Feet): 5 Height (Inches): 6.00 Weight (Pounds): 150 General Appearance: no acute distress HEENT: mucous membranes moist Respiratory/Chest: lungs clear Cardiovascular: normal rate Abdomen: soft, non tender Extremities: no edema Neurologic/Psychiatric: alert, oriented x 3, responsive Laboratory Tests Test 11/03/18 05:36 White Blood Count 13.4 K/UL (4.8-10.8) H Red Blood Count 5.06 M/UL (4.70-6.10) Hemoglobin 15.4 G/DL (14.2-18.0) Hematocrit 44.9 % (42.0-52.0) Mean Corpuscular Volume 89 FL (80-99) Mean Corpuscular Hemoglobin 30.4 PG (27.0-31.0) Mean Corpuscular Hemoglobin Concent 34.3 G/DL (32.0-36.0) Red Cell Distribution Width 11.9 % (11.6-14.8) Platelet Count 269 K/UL (150-450) Mean Platelet Volume 6.9 FL (6.5-10.1) Neutrophils (%) (Auto) % (45.0-75.0) Lymphocytes (%) (Auto) % (20.0-45.0) Monocytes (%) (Auto) % (1.0-10.0) Eosinophils (%) (Auto) % (0.0-3.0) Basophils (%) (Auto) % (0.0-2.0) Sodium Level 140 MMOL/L (136-145) Potassium Level 3.6 MMOL/L (3.5-5.1) Chloride Level 106 MMOL/L (98-107) Carbon Dioxide Level 23 MMOL/L (21-32) Anion Gap 11 mmol/L (5-15) Blood Urea Nitrogen 14 mg/dL (7-18) Creatinine 1.0 MG/DL (0.55-1.30) Estimat Glomerular Filtration Rate > 60 mL/min (>60) Glucose Level 150 MG/DL (74-106) H Calcium Level 9.0 MG/DL (8.5-10.1) Current Medications Medications (Trade) Dose Ordered Sig/Warren Route PRN Reason Start Time Stop Time Status Last Admin Dose Admin Acetaminophen (Tylenol) 650 mg Q4H PRN ORAL Mild Pain/Temp > 100.5 11/02/18 09:30 12/02/18 09:29 11/02/18 10:37 Albuterol/ Ipratropium (Albuterol/ Ipratropium) 3 ml Q4HRT HHN 11/02/18 15:00 11/07/18 14:59 11/03/18 12:38 Azithromycin 500 mg/Dextrose 275 ml @ 275 mls/hr Q24HRS IV 11/02/18 13:00 11/08/18 13:59 11/03/18 13:50 Ceftriaxone Sodium 1 gm/ Dextrose 55 ml @ 110 mls/hr Q24H IVPB 11/02/18 12:00 11/09/18 11:59 11/03/18 13:51 Heparin Sodium (Porcine) (Heparin 5000 units/ml) 5,000 units Q12HR SUBQ 11/02/18 21:00 12/02/18 20:59 11/03/18 09:17 Hydralazine HCl (Apresoline) 25 mg Q6H PRN ORAL For High Blood Pressure 11/02/18 10:00 12/02/18 09:59 Iopamidol (Isovue-370 150ml) 150 ml NOW PRN INJ Radiology Procedure 11/01/18 22:30 11/03/18 22:28 Lorazepam (Ativan) 1 mg Q4H PRN ORAL For Anxiety/agitation 11/02/18 09:30 11/09/18 09:29 Methylprednisolone Sodium Succinate (Solu-MEDROL) 30 mg EVERY 12 HOURS IVP 11/03/18 21:00 12/02/18 20:59 Ondansetron HCl (Zofran) 4 mg Q8H PRN IVP Nausea & Vomiting 11/02/18 10:00 12/02/18 09:59 Sodium Chloride 1,000 ml @ 70 mls/hr [id number] IV 11/02/18 01:45 12/02/18 01:44 11/03/18 03:29 Patricio Mak MD Nov 03, 2018 15:23
--- NOTE | 2018-11-03 15:50 | NUR ---
[employer] EMBRYOLOGIST SI: SEPSIS W/ LEUKOCYTOSIS, CP DUE TO ATYPICAL PNEUMONITIS T. 98.0 HR 103 RR 20 B/P 129/64 NC-3L 02 SAT 97% WBC 13.4 GLUCOSE 150 IS: ALBUTEROL HHN NS 1000ML IV SOLUMEDROL IVP HEPARIN SUBQ ROCEPHIN IVPB ZITHROMAX IVPB TELEMETRY STATUS
[2018-11-03 16:00] VITALS: BP 125/77
--- NOTE | 2018-11-03 18:08 | Cardiology Progress Note ---
Assessment/Plan Assessment/Plan 1. Dyspnea, likely due to pneumonia, normal Beta-natriuretic peptide essentially rules out congestive heart failure. Normal LVEF as well LV diastolic function. 2. Sinus tachycardia, most likely secondary to cocaine use. Subjective Subjective Sinus rhythm at rate of 90. Objective Last 24 Hour Vital Signs Date Time Temp Pulse Resp B/P (MAP) Pulse Ox O2 Delivery O2 Flow Rate FiO2 11/03/18 16:06 106 20 100 Room Air 21 11/03/18 16:00 97.7 87 20 125/77 (93) 97 11/03/18 16:00 111 11/03/18 15:53 92 20 97 Nasal Cannula 2.0 28 11/03/18 12:42 99 20 97 Room Air 21 11/03/18 12:30 89 20 96 Nasal Cannula 2.0 28 11/03/18 12:00 97.9 88 18 133/74 (93) 96 11/03/18 12:00 81 11/03/18 08:00 98.2 92 20 116/66 (83) 96 11/03/18 08:00 Nasal Cannula 2.0 11/03/18 08:00 85 11/03/18 07:41 95 20 98 Nasal Cannula 3.0 32 11/03/18 07:36 85 20 97 Room Air 21 11/03/18 07:35 97 Room Air 21 11/03/18 04:00 82 11/03/18 04:00 98.0 88 18 129/64 (85) 96 11/03/18 03:21 100 20 99 Nasal Cannula 3.0 32 11/03/18 03:11 103 20 97 Nasal Cannula 3.0 32 11/03/18 00:08 90 11/03/18 00:03 98.3 87 18 125/78 (94) 96 11/02/18 23:36 90 20 98 Nasal Cannula 3.0 32 11/02/18 23:26 87 22 94 Nasal Cannula 3.0 32 11/02/18 21:00 Nasal Cannula 2.0 11/02/18 20:00 97.9 93 18 140/86 (104) 11/02/18 20:00 87 11/02/18 19:52 97 20 99 Nasal Cannula 3.0 32 11/02/18 19:42 95 Nasal Cannula 3.0 32 11/02/18 19:42 95 20 95 Nasal Cannula 3.0 32 Intake and Output 11/02/18 11/03/18 19:00 07:00 Intake Total 360 ml 246 ml Balance 360 ml 246 ml Intake Oral 360 ml IV Total 246 ml # Voids 3 2 # Bowel Movements 1 2D Echo: LVEF 60%, Normal LV diastolic fxn, RVSP 12 mmHg, Trace MR Laboratory Tests Test 11/03/18 05:36 White Blood Count 13.4 K/UL (4.8-10.8) H Red Blood Count 5.06 M/UL (4.70-6.10) Hemoglobin 15.4 G/DL (14.2-18.0) Hematocrit 44.9 % (42.0-52.0) Mean Corpuscular Volume 89 FL (80-99) Mean Corpuscular Hemoglobin 30.4 PG (27.0-31.0) Mean Corpuscular Hemoglobin Concent 34.3 G/DL (32.0-36.0) Red Cell Distribution Width 11.9 % (11.6-14.8) Platelet Count 269 K/UL (150-450) Mean Platelet Volume 6.9 FL (6.5-10.1) Neutrophils (%) (Auto) % (45.0-75.0) Lymphocytes (%) (Auto) % (20.0-45.0) Monocytes (%) (Auto) % (1.0-10.0) Eosinophils (%) (Auto) % (0.0-3.0) Basophils (%) (Auto) % (0.0-2.0) Sodium Level 140 MMOL/L (136-145) Potassium Level 3.6 MMOL/L (3.5-5.1) Chloride Level 106 MMOL/L (98-107) Carbon Dioxide Level 23 MMOL/L (21-32) Anion Gap 11 mmol/L (5-15) Blood Urea Nitrogen 14 mg/dL (7-18) Creatinine 1.0 MG/DL (0.55-1.30) Estimat Glomerular Filtration Rate > 60 mL/min (>60) Glucose Level 150 MG/DL (74-106) H Calcium Level 9.0 MG/DL (8.5-10.1) Objective HEENT: Atraumatic and normocephalic. Anicteric. Pupils are equal, round, and reactive to light and accommodation. Extraocular muscles are intact. NECK: JVP less than 5 cm. No carotid bruit. Carotid upstroke is 2+ bilaterally. CARDIOVASCULAR: Normal S1 and S2. Regular rate and rhythm. Tachycardic. PMI is at fourth intercostal space at the midclavicular line. LUNGS: Clear to auscultation bilaterally. ABDOMEN: Soft, nontender, and nondistended. No hepatosplenomegaly. Positive bowel sounds. EXTREMITIES: No evidence of edema, clubbing, or cyanosis. Basil Gupta MD Nov 03, 2018 18:08
[2018-11-03] MEDS: dilTIAZem HCl CD 120mg cap ORAL SCH (18:26)
--- NOTE | 2018-11-03 19:16 | NUR ---
HAND-OFF: Report given to EDY Sequeira. Pt is in stable condition; plan of care endorsed.
--- NOTE | 2018-11-03 19:17 | NUR ---
NURSE NOTES: Receivedf pt from Bob Cartagena. Pt is awake and resting in bed. IV site intact and patent. Bed locked, call light within reach. Will continue with plan of care.
[2018-11-03 20:00] VITALS: BP 150/80
--- NOTE | 2018-11-03 22:25 | General Progress Note ---
Assessment/Plan Problem List: (1) Bronchospasm, acute ICD Codes: J98.01 - Acute bronchospasm SNOMED: 56772671500415 (2) Chest pain ICD Codes: R07.9 - Chest pain, unspecified SNOMED: 95058726 (3) Pneumonitis ICD Codes: J18.9 - Pneumonia, unspecified organism SNOMED: 194625856 Status: progressing Assessment/Plan: pna is improving abx per id no wheezing asthma? Subjective ROS Limited/Unobtainable: Yes Allergies: Coded Allergies: No Known Allergies (Unverified , 11/01/18) Objective Last 24 Hour Vital Signs Date Time Temp Pulse Resp B/P (MAP) Pulse Ox O2 Delivery O2 Flow Rate FiO2 11/03/18 20:02 82 18 99 Room Air 21 11/03/18 19:52 97 Room Air 21 11/03/18 19:52 85 20 97 Room Air 21 11/03/18 18:26 106 125/77 11/03/18 16:06 106 20 100 Room Air 21 11/03/18 16:00 97.7 87 20 125/77 (93) 97 11/03/18 16:00 111 11/03/18 15:53 92 20 97 Nasal Cannula 2.0 28 11/03/18 12:42 99 20 97 Room Air 21 11/03/18 12:30 89 20 96 Nasal Cannula 2.0 28 11/03/18 12:00 97.9 88 18 133/74 (93) 96 11/03/18 12:00 81 11/03/18 08:00 98.2 92 20 116/66 (83) 96 11/03/18 08:00 Nasal Cannula 2.0 11/03/18 08:00 85 11/03/18 07:41 95 20 98 Nasal Cannula 3.0 32 11/03/18 07:36 85 20 97 Room Air 21 11/03/18 07:35 97 Room Air 21 11/03/18 04:00 82 11/03/18 04:00 98.0 88 18 129/64 (85) 96 11/03/18 03:21 100 20 99 Nasal Cannula 3.0 32 11/03/18 03:11 103 20 97 Nasal Cannula 3.0 32 11/03/18 00:08 90 11/03/18 00:03 98.3 87 18 125/78 (94) 96 11/02/18 23:36 90 20 98 Nasal Cannula 3.0 32 11/02/18 23:26 87 22 94 Nasal Cannula 3.0 32 Intake and Output 11/02/18 11/03/18 19:00 07:00 Intake Total 360 ml 246 ml Balance 360 ml 246 ml Intake Oral 360 ml IV Total 246 ml # Voids 3 2 # Bowel Movements 1 Laboratory Tests 11/03/18 05:36: White Blood Count 13.4H, Red Blood Count 5.06, Hemoglobin 15.4, Hematocrit 44.9 , Mean Corpuscular Volume 89, Mean Corpuscular Hemoglobin 30.4, Mean Corpuscular Hemoglobin Concent 34.3, Red Cell Distribution Width 11.9, Platelet Count 269, Mean Platelet Volume 6.9, Neutrophils (%) (Auto) , Lymphocytes (%) ( Auto) , Monocytes (%) (Auto) , Eosinophils (%) (Auto) , Basophils (%) (Auto) , Sodium Level 140, Potassium Level 3.6, Chloride Level 106, Carbon Dioxide Level 23, Anion Gap 11, Blood Urea Nitrogen 14, Creatinine 1.0, Estimat Glomerular Filtration Rate > 60, Glucose Level 150H, Calcium Level 9.0 Height (Feet): 5 Height (Inches): 6.00 Weight (Pounds): 150 Neck: supple Cardiovascular: normal peripheral pulses Respiratory/Chest: lungs clear Abdomen: soft Devika Zamora MD Nov 03, 2018 22:25
[2018-11-03] MEDS: Solu-MEDROL 40mg Inj IVP SCH (23:29)
--- NOTE | 2018-11-03 23:45 | History and Physical Report ---
DATE OF ADMISSION: 11/01/2018 HISTORY OF PRESENT ILLNESS: The patient comes in with atypical pneumonitis. Also, has a history of drug abuse and some bronchospasms. Labs showed leukocytosis, and the chest pain is made worse by deep inspiration. The patient is admitted for those reasons. The patient is also complaining of shortness of breath for two days and nonproductive cough for two days and history of smoking and history of drug abuse. The patient . Denies orthopnea. Denies wheezing. PAST MEDICAL HISTORY: Denies. PAST SURGICAL HISTORY: None. MEDICATIONS: None. ALLERGIES: No known allergies. SOCIAL HISTORY: History of smoking. History of drug abuse. Denies alcohol abuse. FAMILY HISTORY: Noncontributory. REVIEW OF SYSTEMS: HEENT: Denies headaches. RESPIRATORY: Reports shortness of breath at times. He does have nonproductive cough for two days. CARDIOVASCULAR: Denies chest pain or orthopnea. GASTROINTESTINAL: Denies nausea, vomiting, or diarrhea. EXTREMITIES: Denies pain in the lower extremities. CENTRAL NERVOUS PATTERN: Denies change in speech pattern. PHYSICAL EXAMINATION: VITAL SIGNS: Temperature 97.4, pulse 97, and blood pressure 134/77. HEENT: PERRLA. NECK: Supple. CHEST: Clear to auscultation. CARDIOVASCULAR: Regular rate and rhythm. No murmurs or extra sounds. GASTROINTESTINAL: Soft, nontender, and nondistended. No organomegaly. EXTREMITIES: No edema. Moves all four extremities. NEUROLOGIC: Sensory intact to light touch. The patient is able to move all four extremities. LABORATORY DATA: WBC of 21.3, hemoglobin is 17.3, and platelets of 279,000. Sodium 138, potassium 3.4, BUN of 9, creatinine 1, and glucose of 104. ASSESSMENT: 1. Shortness of breath. 2. Pneumonia. 3. Atypical chest pain. 4. History of drug abuse. PLAN: I have asked Dr. Gupta, Dr. Jacobs and to see the patient to help with the management of the above-mentioned diagnoses and as well as further treatment. Devika Zamora M.D. DR: MELIZA JOB#: [id number] CC:
[2018-11-04] VITALS: BP 128/72
--- NOTE | 2018-11-04 00:45 | Consultation ---
DATE OF CONSULTATION: 11/02/2018 PAIN MANAGEMENT CONSULTATION CONSULTING PHYSICIAN: Pavan Yuan M.D. REFERRING PHYSICIAN: Devika Zamora M.D. PHYSICIAN EVS TECH: Emigdio Flores CHIEF COMPLAINT: Alcohol and substance abuse. HISTORY OF PRESENT ILLNESS: This is a 28-year-old male who is being seen on the Med/Surg floor of [facility] for initial pain management consultation. The patient was admitted under the care of Dr. Zamora with pneumonitis, willing to be seen by a it systems administrator. He reports that he had been partying for many days and 2 days ago he was drinking alcohol, smoking cigarettes and reporting that. With marijuana and cocaine abuse, which was found in his urine. At this time, he is comfortable, denies pain. We were consulted so that the patient would have adequate pain control while here in the hospital. PAST MEDICAL HISTORY: Denies. PAST SURGICAL HISTORY: Denies. SOCIAL HISTORY: Denies IV drug abuse; however, he is an alcohol abuser, cocaine abuser, and marijuana abuser and cigarette smoker. ALLERGIES: No known drug allergies. MEDICATIONS: Denies taking any outpatient medications. REVIEW OF SYSTEMS: Denies rash, fever, chills, sweating, dizziness, drowsiness, blurred vision, sore throat, or change in his weight. No shortness of breath. No nausea, vomiting, or blood in stool or urine. No bowel or bladder incontinence. No dysuria. He is complaining of substance abuse. PHYSICAL EXAMINATION: GENERAL: Alert, awake, and oriented. VITAL SIGNS: Blood pressure 134/75, heart rate 89, oxygen saturation 99%, respiratory rate 18, temperature 98. HEENT: PERRLA. NECK: Range of motion is full in all directions. No tenderness to paracervical muscles. No adenopathy. LUNGS: Decreased breath sounds bilaterally. HEART: Regular. ABDOMEN: Soft, nontender. EXTREMITIES: No cyanosis, no clubbing, no edema. NEUROLOGICAL: No focal deficit. ASSESSMENT AND PLAN: This is a 28-year-old male with bronchospasm, pneumonitis, alcohol abuse, cocaine abuse with alcohol withdrawal. The patient will be started on Ativan 1 mg tablets every 4 hours as needed for agitation and anxiety and add Tylenol 650 mg tablets every 4 hours as needed for mild pain. patient was discussed with Dr. Yuan and Dr. Yuan concurred. Thank you very much for the courtesy of this consultation. Pavan Yuan M.D. EFRAIN Flores DR: ALEXEI JOB#: [id number] CC: CHRISTOPHER
[2018-11-04] MEDS: Albuterol/Ipratropium 3ml neb HHN SCH ×6 (03:50→23:37)
[2018-11-04 04:00] VITALS: BP 120/66
--- NOTE | 2018-11-04 07:35 | NUR ---
HAND-OFF: Report given to [employer]. Endorsed plan of care.
[2018-11-04 08:00] VITALS: BP 124/74
[2018-11-04] MEDS ORDERED: 1/2 NS 1000ml IV ONE (09:03)
[2018-11-04] MEDS: dilTIAZem HCl CD 120mg cap ORAL SCH (09:29)
[2018-11-04] MEDS: Solu-MEDROL 40mg Inj IVP SCH (09:29)
[2018-11-04] MEDS: Heparin 5000 units/ml inj SUBQ SCH ×2 (09:31→20:31)
--- NOTE | 2018-11-04 09:48 | General Progress Note ---
Assessment/Plan Assessment/Plan: (1) Bronchospasm (2) Pneumonitis (3) Cocaine abuse (4) Alcohol abuse and withdrawals Patient to be continued on Ativan and Tylenol D/w Dr. Yuan and he concurred. Subjective Date patient seen: Nov 04, 2018 Time patient seen: 08:30 - am Allergies: Coded Allergies: No Known Allergies (Unverified , 11/01/18) Subjective HEENT: Reports: no symptoms Cardiovascular: Reports: no symptoms Respiratory: Reports: cough Gastrointestinal/Abdominal: Reports: no symptoms Genitourinary: Reports: no symptoms Neurologic/Psychiatric: Reports: no symptoms Endocrine: Reports: no symptoms Hematologic/Lymphatic: Reports: no symptoms Subjective Patient is in bed showing no signs of pain or distress. Denies pain at this time. Objective Last 24 Hour Vital Signs Date Time Temp Pulse Resp B/P (MAP) Pulse Ox O2 Delivery O2 Flow Rate FiO2 11/04/18 09:29 87 124/74 11/04/18 08:08 87 20 99 Room Air 11/04/18 08:00 98.4 83 18 124/74 (91) 95 11/04/18 08:00 87 20 98 Room Air 11/04/18 07:59 98 Room Air 11/04/18 04:00 79 11/04/18 04:00 98.7 79 18 120/66 (84) 100 11/04/18 03:59 88 18 98 Room Air 11/04/18 03:50 80 18 95 Room Air 11/04/18 00:01 92 18 99 Room Air 11/04/18 00:00 95 11/04/18 00:00 98.0 95 18 128/72 (90) 99 11/03/18 23:51 92 18 95 Room Air 11/03/18 21:00 Nasal Cannula 2.0 11/03/18 20:02 82 18 99 Room Air 11/03/18 20:00 101 11/03/18 20:00 98.1 101 20 150/80 (103) 96 11/03/18 19:52 97 Room Air 21 11/03/18 19:52 85 20 97 Room Air 21 11/03/18 18:26 106 125/77 11/03/18 16:06 106 20 100 Room Air 21 11/03/18 16:00 97.7 87 20 125/77 (93) 97 8/15/19 16:00 111 11/03/18 15:53 92 20 97 Nasal Cannula 2.0 28 11/03/18 12:42 99 20 97 Room Air 21 11/03/18 12:30 89 20 96 Nasal Cannula 2.0 28 11/03/18 12:00 97.9 88 18 133/74 (93) 96 11/03/18 12:00 81 Intake and Output 11/03/18 11/04/18 18:59 06:59 Intake Total 1367 ml Balance 1367 ml Intake Oral 240 ml IV Total 1127 ml # Voids 5 3 Height (Feet): 5 Height (Inches): 6.00 Weight (Pounds): 150 Objective General Appearance: no apparent distress, alert EENT: PERRL/EOMI, normal ENT inspection Neck: non-tender, normal alignment Cardiovascular: normal rate, regular rhythm Respiratory/Chest: decreased breath sounds Abdomen: non tender, soft Extremities: non-tender Edema: no edema noted Generalized Neurologic: alert, oriented x 3 Skin: normal pigmentation Abebe Padilla Nov 04, 2018 09:48
--- NOTE | 2018-11-04 09:54 | Infectious Diseases Prog Note ---
Assessment/Plan Assessment/Plan IMPRESSION: Sepsis with leukocytosis and tachycardia, Pneumonia more likely atypical, Cocaine abuse, Marijuana abuse. RECOMMENDATION: We will continue with ceftriaxone and azithromycin In case of discharge PO Levaquin Subjective ROS Limited/Unobtainable: No Constitutional: Reports: no symptoms HEENT: Reports: other - nasal bleeding Respiratory: Reports: productive cough Cardiovascular: Reports: no symptoms Gastrointestinal/Abdominal: Reports: no symptoms Genitourinary: Reports: no symptoms Allergies: Coded Allergies: No Known Allergies (Unverified , 11/01/18) Objective Vital Signs Last 24 Hour Vital Signs Date Time Temp Pulse Resp B/P (MAP) Pulse Ox O2 Delivery O2 Flow Rate FiO2 11/04/18 09:29 87 124/74 11/04/18 08:08 87 20 99 Room Air 21 11/04/18 08:00 98.4 83 18 124/74 (91) 95 11/04/18 08:00 87 20 98 Room Air 21 11/04/18 07:59 98 Room Air 21 11/04/18 04:00 79 11/04/18 04:00 98.7 79 18 120/66 (84) 100 11/04/18 03:59 88 18 98 Room Air 21 11/04/18 03:50 80 18 95 Room Air 11/04/18 00:01 92 18 99 Room Air 21 11/04/18 00:00 95 11/04/18 00:00 98.0 95 18 128/72 (90) 99 11/03/18 23:51 92 18 95 Room Air 11/03/18 21:00 Nasal Cannula 2.0 11/03/18 20:02 82 18 99 Room Air 11/03/18 20:00 101 11/03/18 20:00 98.1 101 20 150/80 (103) 96 11/03/18 19:52 97 Room Air 11/03/18 19:52 85 20 97 Room Air 21 11/03/18 18:26 106 125/77 11/03/18 16:06 106 20 100 Room Air 21 11/03/18 16:00 97.7 87 20 125/77 (93) 97 11/03/18 16:00 111 11/03/18 15:53 92 20 97 Nasal Cannula 2.0 28 11/03/18 12:42 99 20 97 Room Air 21 11/03/18 12:30 89 20 96 Nasal Cannula 2.0 28 11/03/18 12:00 97.9 88 18 133/74 (93) 96 11/03/18 12:00 81 Height (Feet): 5 Height (Inches): 6.00 Weight (Pounds): 150 General Appearance: no acute distress HEENT: mucous membranes moist, other - erythema of nasal mucosa Respiratory/Chest: lungs clear Cardiovascular: normal rate Abdomen: soft, non tender Extremities: no edema Neurologic/Psychiatric: alert, oriented x 3, responsive Microbiology Date/Time Source Procedure Growth Status 11/01/18 22:35 Blood Blood Culture - Preliminary NO GROWTH AFTER 48 HOURS Resulted 11/01/18 22:20 Blood Blood Culture - Preliminary NO GROWTH AFTER 48 HOURS Resulted Current Medications Medications (Trade) Dose Ordered Sig/Warren Route PRN Reason Start Time Stop Time Status Last Admin Dose Admin Acetaminophen (Tylenol) 650 mg Q4H PRN ORAL Mild Pain/Temp > 100.5 11/02/18 09:30 12/02/18 09:29 11/02/18 10:37 Albuterol/ Ipratropium (Albuterol/ Ipratropium) 3 ml Q4HRT HHN 11/02/18 15:00 11/07/18 14:59 11/04/18 08:00 Azithromycin 500 mg/Dextrose 275 ml @ 275 mls/hr Q24HRS IV 11/02/18 13:00 11/08/18 13:59 11/03/18 13:50 Ceftriaxone Sodium 1 gm/ Dextrose 55 ml @ 110 mls/hr Q24H IVPB 11/02/18 12:00 11/09/18 11:59 11/03/18 13:51 Diltiazem HCl (Cardizem CD) 120 mg DAILY ORAL 11/03/18 18:15 12/03/18 18:14 11/04/18 09:29 Heparin Sodium (Porcine) (Heparin 5000 units/ml) 5,000 units Q12HR SUBQ 11/02/18 21:00 12/02/18 20:59 11/04/18 09:31 Hydralazine HCl (Apresoline) 25 mg Q6H PRN ORAL For High Blood Pressure 11/02/18 10:00 12/02/18 09:59 Lorazepam (Ativan) 1 mg Q4H PRN ORAL For Anxiety/agitation 11/02/18 09:30 11/09/18 09:29 Methylprednisolone Sodium Succinate (Solu-MEDROL) 30 mg EVERY 12 HOURS IVP 11/03/18 21:00 12/02/18 20:59 11/04/18 09:29 Ondansetron HCl (Zofran) 4 mg Q8H PRN IVP Nausea & Vomiting 11/02/18 10:00 12/02/18 09:59 Sodium Chloride 1,000 ml @ 70 mls/hr [id number] IV 11/02/18 01:45 12/02/18 01:44 11/04/18 09:31 Patricio Mak MD Nov 04, 2018 09:54
--- NOTE | 2018-11-04 11:45 | NUR ---
RD ASSESSMENT & RECOMMENDATIONS SEE CARE ACTIVITY FOR COMPLETE ASSESSMENT DAILY ESTIMATED NEEDS: Needs based on Sepsis, 66kg 25-35 kcals/kg 7588-5396 total kcals 1-2 g protein/kg 66-132 g total protein 25-30 mL/kg 4830-6389 total fluid mLs NUTRITION DIAGNOSIS: Altered nutrition related lab values R/T Sepsis, clinical condition, substance abuse as evidenced by elev WBC, elev BGs (150, 136, 155), on solumedrol, + tox screen for cocaine and marijuana. CURRENT DIET:REGULAR, mech soft ground PO DIET RECOMMENDATIONS: Maintain regular diet as tolerated ADDITIONAL RECOMMENDATIONS: * Standing weight for accurate CBW * Monitor BGs closely on Solumedrol. * Snacks BID in b/w meals
[2018-11-04 12:00] VITALS: BP 122/66
--- NOTE | 2018-11-04 12:16 | CDS Physician Query ---
Clarification is required for compliance, coding accuracy, and to reflect severity of illness for this patient. Dear Dr. Zamora Date: 11/04/2018 CDS: Genet Enriquez Clinical Documentation States: ID note: Sepsis with leukocytosis and tachycardia , source the patient seems to have pneumonia more likely atypical, has cocaine abuse, marijuana abuse. Vitals/labs on admission: WBC 21.3, ME 125, RR 34, Temp 98.6 Treatment: azithromycin, ceftriaxone Please note if Sepsis was Present on Admission: [] Yes [] No [] Clinically Undetermined Physician signature Date Please also document in your Progress Notes and/or Discharge Summary and indicate if the condition was present on admission. BRAULIOD
[2018-11-04] MEDS: Azithromycin 500 MG in D5W 275 ML IV SCH (12:32)
[2018-11-04] MEDS: cefTRIAXone 1 GM in D5W 55 ML IVPB SCH (12:53)
[2018-11-04 16:00] VITALS: BP 127/67
--- NOTE | 2018-11-04 16:45 | Pulmonology Progress Note ---
Assessment/Plan Assessment/Plan Pulmonary Progress Note HPI Patient is a 28-year-old male admitted with chest discomfort shortness of breath and non productive cough, noted to have Pneumonia, patient reports last using cocaine approximately 3 days prior to arrival. He denies any prior history of HIV or other medical conditions. He states he has prior history of allergy to cocaine. Patient reports having increased chest discomfort. Denies hemoptysis, no previous Tuberculosis. Less SOB Allergies: No Known Allergies Past Medical History: Cocaine use All Other Systems: negative except mentioned in HPI Physical Exam Vital Signs Noted General Appearance: normal inspection, alert, GCS 15, moderate distress Head: atraumatic ENT: normal inspection, moist mm, normal voice Neck: normal inspection, no LN Respiratory: normal inspection, CTAB Cardiovascular #1: regular rate, rhythm, normal HS1, HS2, no edema Gastrointestinal: normal inspection, normal bowel sounds, non tender, soft, no guarding, no hernia Genitourinary: no CVA tenderness Musculoskeletal: normal inspection, back normal, normal range of motion Neurologic: normal inspection, alert, oriented x3, responsive, no focal signs Impression: Pneumonia, bilateral patchy infiltrates Cocaine use Chest pain- no PE/Aortic dissection on CTA chest Wheezing Plan Ceftriaxone and Azithromycin IV steroids - wean to 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 HIV serology negative Labs Test 11/01/18 21:00 11/01/18 21:30 White Blood Count 21.3 K/UL (4.8-10.8) Red Blood Count 5.67 M/UL (4.70-6.10) Hemoglobin 17.3 G/DL (14.2-18.0) Hematocrit 47.7 % (42.0-52.0) Mean Corpuscular Volume 84 FL (80-99) Mean Corpuscular Hemoglobin 30.5 PG (27.0-31.0) Mean Corpuscular Hemoglobin Concent 36.3 G/DL (32.0-36.0) Red Cell Distribution Width 11.0 % (11.6-14.8) Platelet Count 279 K/UL (150-450) Mean Platelet Volume 6.3 FL (6.5-10.1) Neutrophils (%) (Auto) % (45.0-75.0) Lymphocytes (%) (Auto) % (20.0-45.0) Monocytes (%) (Auto) % (1.0-10.0) Eosinophils (%) (Auto) % (0.0-3.0) Basophils (%) (Auto) % (0.0-2.0) D-Dimer 0.76 mg/L FEU (0.00-0.49) Sodium Level 138 MMOL/L (136-145) Potassium Level 3.4 MMOL/L (3.5-5.1) Chloride Level 103 MMOL/L (98-107) Carbon Dioxide Level 25 MMOL/L (21-32) Anion Gap 10 mmol/L (5-15) Blood Urea Nitrogen 9 mg/dL (7-18) Creatinine 1.0 MG/DL (0.55-1.30) Estimat Glomerular Filtration Rate > 60 mL/min (>60) Glucose Level 104 MG/DL (74-106) Calcium Level 9.1 MG/DL (8.5-10.1) Urine Color Yellow Urine Appearance Clear Urine pH 7 (4.5-8.0) Urine Specific [place] 1.010 (1.005-1.035) Urine Protein Negative (NEGATIVE) Urine Glucose (UA) Negative (NEGATIVE) Urine Ketones 4+ (NEGATIVE) Urine Blood Negative (NEGATIVE) Urine Nitrite Negative (NEGATIVE) Urine Bilirubin Negative (NEGATIVE) Urine Urobilinogen 4 MG/DL (0.0-1.0) Urine Leukocyte Esterase Negative (NEGATIVE) Urine Opiates Screen Negative (NEGATIVE) Urine Barbiturates Screen Negative (NEGATIVE) Phencyclidine (PCP) Screen Negative (NEGATIVE) Urine Amphetamines Screen Negative (NEGATIVE) Urine Benzodiazepines Screen Negative (NEGATIVE) Urine Cocaine Screen Positive (NEGATIVE) Urine Marijuana (THC) Screen Positive (NEGATIVE) Subjective ROS Limited/Unobtainable: No Allergies: Coded Allergies: No Known Allergies (Unverified , 11/01/18) Objective Last 24 Hour Vital Signs Date Time Temp Pulse Resp B/P (MAP) Pulse Ox O2 Delivery O2 Flow Rate FiO2 11/04/18 15:52 74 20 98 Room Air 11/04/18 15:41 81 20 97 Room Air 21 11/04/18 12:00 98.6 84 20 122/66 (84) 97 11/04/18 12:00 94 11/04/18 11:34 89 20 99 Room Air 21 11/04/18 11:23 84 20 98 Room Air 21 11/04/18 11:09 Nasal Cannula 2.0 11/04/18 09:29 87 124/74 11/04/18 08:08 87 20 99 Room Air 21 11/04/18 08:00 98.4 83 18 124/74 (91) 95 11/04/18 08:00 87 20 98 Room Air 21 11/04/18 08:00 87 11/04/18 07:59 98 Room Air 21 11/04/18 04:00 79 11/04/18 04:00 98.7 79 18 120/66 (84) 100 11/04/18 03:59 88 18 98 Room Air 21 11/04/18 03:50 80 18 95 Room Air 21 11/04/18 00:01 92 18 99 Room Air 21 11/04/18 00:00 95 11/04/18 00:00 98.0 95 18 128/72 (90) 99 11/03/18 23:51 92 18 95 Room Air 21 11/03/18 21:00 Nasal Cannula 2.0 11/03/18 20:02 82 18 99 Room Air 11/03/18 20:00 101 11/03/18 20:00 98.1 101 20 150/80 (103) 96 11/03/18 19:52 97 Room Air 11/03/18 19:52 85 20 97 Room Air 11/03/18 18:26 106 125/77 Intake and Output 11/03/18 11/04/18 19:00 07:00 Intake Total 1297 ml 120 ml Balance 1297 ml 120 ml Intake Oral 240 ml 120 ml IV Total 1057 ml # Voids 5 3 Microbiology Date/Time Source Procedure Growth Status 11/01/18 22:35 Blood Blood Culture - Preliminary NO GROWTH AFTER 48 HOURS Resulted 11/01/18 22:20 Blood Blood Culture - Preliminary NO GROWTH AFTER 48 HOURS Resulted Current Medications Medications (Trade) Dose Ordered Sig/Warren Route PRN Reason Start Time Stop Time Status Last Admin Dose Admin Acetaminophen (Tylenol) 650 mg Q4H PRN ORAL Mild Pain/Temp > 100.5 11/02/18 09:30 12/02/18 09:29 11/02/18 10:37 Albuterol/ Ipratropium (Albuterol/ Ipratropium) 3 ml Q4HRT HHN 11/02/18 15:00 11/07/18 14:59 11/04/18 15:43 Azithromycin 500 mg/Dextrose 275 ml @ 275 mls/hr Q24HRS IV 11/02/18 13:00 11/08/18 13:59 11/04/18 12:32 Ceftriaxone Sodium 1 gm/ Dextrose 55 ml @ 110 mls/hr Q24H IVPB 11/02/18 12:00 11/09/18 11:59 11/04/18 12:53 Diltiazem HCl (Cardizem CD) 120 mg DAILY ORAL 11/03/18 18:15 12/03/18 18:14 11/04/18 09:29 Heparin Sodium (Porcine) (Heparin 5000 units/ml) 5,000 units Q12HR SUBQ 11/02/18 21:00 12/02/18 20:59 11/04/18 09:31 Hydralazine HCl (Apresoline) 25 mg Q6H PRN ORAL For High Blood Pressure 11/02/18 10:00 12/02/18 09:59 Lorazepam (Ativan) 1 mg Q4H PRN ORAL For Anxiety/agitation 11/02/18 09:30 11/09/18 09:29 Methylprednisolone Sodium Succinate (Solu-MEDROL) 30 mg ONCE IVP 11/04/18 21:00 11/04/18 22:00 Ondansetron HCl (Zofran) 4 mg Q8H PRN IVP Nausea & Vomiting 11/02/18 10:00 12/02/18 09:59 Prednisone (predniSONE) 30 mg DAILY ORAL 11/05/18 09:00 12/05/18 08:59 Sodium Chloride 1,000 ml @ 70 mls/hr [id number] IV 11/02/18 01:45 12/02/18 01:44 11/04/18 09:31 Tommy Jacobs MD Nov 04, 2018 16:45
--- NOTE | 2018-11-04 17:49 | Hematology/Onc Progress Note ---
Assessment/Plan Assessment/Plan Assessment and Recs # Leukocytosis/elevated white blood cell count, unspecified likely related to underlying stress reaction, smoking v drug use (Also receiving steriods) --> have reviewed peripheral smear and bandemia/neutrophilia noted --> continue antibiotics if they have been started by ID team(mary) --> monitor for resolution trend 21k-->16-->18->13 # Chest pain likely due to atypical pneumonitis --> as per pulm --> on steriods # Bronchospasm, acute --> likely due to pneumonitos # Tachycardia now improved --> ivf given # DVT ppx heparin sq The timing of this note does not necessarily reflect the time of the patient was seen. GREATLY APPRECIATE CONSULTATION. Subjective Constitutional: Denies: no symptoms, chills, fever, malaise, weakness, other HEENT: Denies: no symptoms, eye pain, blurred vision, tearing, double vision, ear pain, ear discharge, nose pain, nose congestion, throat pain, throat swelling, mouth pain, mouth swelling, other Cardiovascular: Denies: no symptoms, chest pain, edema, irregular heart rate, lightheadedness, palpitations, syncope, other Respiratory: Denies: no symptoms, cough, shortness of breath, SOB with excertion, SOB at rest, sputum, wheezing, other Gastrointestinal/Abdominal: Denies: no symptoms, abdomen distended, abdominal pain, black stools, tarry stools, blood in stool, constipated, diarrhea, difficulty swallowing, nausea, poor appetite, poor fluid intake, rectal bleeding , vomiting, other Genitourinary: Denies: no symptoms, burning, discharge, frequency, flank pain, hematuria, incontinence, pain, urgency, other Neurologic/Psychiatric: Denies: no symptoms, anxiety, depressed, emotional problems, headache, numbness, paresthesia, pre-existing deficit, seizure, tingling, tremors, weakness, other Endocrine: Denies: no symptoms, excessive sweating, flushing, intolerance to cold, intolerance to heat, increased hunger, increased thirst, increased urine, unexplained weight gain, unexplained weight loss, other Allergies: Coded Allergies: No Known Allergies (Unverified , 11/01/18) Subjective 11/03: in stable condition, no f/c, no night sweats, wbc better 11/04: no events, no pleurtic cp, feeling better, if dc dw id and po leva Objective Objective Current Medications Medications (Trade) Dose Ordered Sig/Warren Route PRN Reason Start Time Stop Time Status Last Admin Dose Admin Acetaminophen (Tylenol) 650 mg Q4H PRN ORAL Mild Pain/Temp > 100.5 11/02/18 09:30 12/02/18 09:29 11/02/18 10:37 Albuterol/ Ipratropium (Albuterol/ Ipratropium) 3 ml Q4HRT HHN 11/02/18 15:00 11/07/18 14:59 11/04/18 15:43 Azithromycin 500 mg/Dextrose 275 ml @ 275 mls/hr Q24HRS IV 11/02/18 13:00 11/08/18 13:59 11/04/18 12:32 Ceftriaxone Sodium 1 gm/ Dextrose 55 ml @ 110 mls/hr Q24H IVPB 11/02/18 12:00 11/09/18 11:59 11/04/18 12:53 Diltiazem HCl (Cardizem CD) 120 mg DAILY ORAL 11/03/18 18:15 12/03/18 18:14 11/04/18 09:29 Heparin Sodium (Porcine) (Heparin 5000 units/ml) 5,000 units Q12HR SUBQ 11/02/18 21:00 12/02/18 20:59 11/04/18 09:31 Hydralazine HCl (Apresoline) 25 mg Q6H PRN ORAL For High Blood Pressure 11/02/18 10:00 12/02/18 09:59 Lorazepam (Ativan) 1 mg Q4H PRN ORAL For Anxiety/agitation 11/02/18 09:30 11/09/18 09:29 Methylprednisolone Sodium Succinate (Solu-MEDROL) 30 mg ONCE IVP 11/04/18 21:00 11/04/18 22:00 Ondansetron HCl (Zofran) 4 mg Q8H PRN IVP Nausea & Vomiting 11/02/18 10:00 12/02/18 09:59 Prednisone (predniSONE) 30 mg DAILY ORAL 11/05/18 09:00 12/05/18 08:59 Sodium Chloride 1,000 ml @ 70 mls/hr [id number] IV 11/02/18 01:45 12/02/18 01:44 11/04/18 09:31 Last 24 Hour Vital Signs Date Time Temp Pulse Resp B/P (MAP) Pulse Ox O2 Delivery O2 Flow Rate FiO2 11/04/18 16:00 98.2 88 18 127/67 (87) 97 11/04/18 16:00 85 11/04/18 15:52 74 20 98 Room Air 21 11/04/18 15:41 81 20 97 Room Air 21 11/04/18 12:00 98.6 84 20 122/66 (84) 97 11/04/18 12:00 94 11/04/18 11:34 89 20 99 Room Air 21 11/04/18 11:23 84 20 98 Room Air 21 11/04/18 11:09 Nasal Cannula 2.0 11/04/18 09:29 87 124/74 11/04/18 08:08 87 20 99 Room Air 21 11/04/18 08:00 98.4 83 18 124/74 (91) 95 11/04/18 08:00 87 20 98 Room Air 21 11/04/18 08:00 87 11/04/18 07:59 98 Room Air 21 11/04/18 04:00 79 11/04/18 04:00 98.7 79 18 120/66 (84) 100 11/04/18 03:59 88 18 98 Room Air 21 11/04/18 03:50 80 18 95 Room Air 21 11/04/18 00:01 92 18 99 Room Air 21 11/04/18 00:00 95 11/04/18 00:00 98.0 95 18 128/72 (90) 99 11/03/18 23:51 92 18 95 Room Air 21 11/03/18 21:00 Nasal Cannula 2.0 11/03/18 20:02 82 18 99 Room Air 21 11/03/18 20:00 101 11/03/18 20:00 98.1 101 20 150/80 (103) 96 11/03/18 19:52 97 Room Air 21 11/03/18 19:52 85 20 97 Room Air 21 11/03/18 18:26 106 125/77 11/03/18 16:06 106 20 100 Room Air 21 11/03/18 16:00 97.7 87 20 125/77 (93) 97 11/03/18 16:00 111 8/15/19 15:53 92 20 97 Nasal Cannula 2.0 28 11/03/18 12:42 99 20 97 Room Air 21 11/03/18 12:30 89 20 96 Nasal Cannula 2.0 28 11/03/18 12:00 97.9 88 18 133/74 (93) 96 11/03/18 12:00 81 11/03/18 08:00 98.2 92 20 116/66 (83) 96 11/03/18 08:00 Nasal Cannula 2.0 11/03/18 08:00 85 11/03/18 07:41 95 20 98 Nasal Cannula 3.0 32 11/03/18 07:36 85 20 97 Room Air 21 11/03/18 07:35 97 Room Air 21 11/03/18 04:00 82 11/03/18 04:00 98.0 88 18 129/64 (85) 96 11/03/18 03:21 100 20 99 Nasal Cannula 3.0 32 11/03/18 03:11 103 20 97 Nasal Cannula 3.0 32 11/03/18 00:08 90 11/03/18 00:03 98.3 87 18 125/78 (94) 96 11/02/18 23:36 90 20 98 Nasal Cannula 3.0 32 11/02/18 23:26 87 22 94 Nasal Cannula 3.0 32 11/02/18 21:00 Nasal Cannula 2.0 11/02/18 20:00 97.9 93 18 140/86 (104) 11/02/18 20:00 87 11/02/18 19:52 97 20 99 Nasal Cannula 3.0 32 11/02/18 19:42 95 Nasal Cannula 3.0 32 11/02/18 19:42 95 20 95 Nasal Cannula 3.0 32 Intake and Output 11/03/18 11/04/18 19:00 07:00 Intake Total 1297 ml 120 ml Balance 1297 ml 120 ml Intake Oral 240 ml 120 ml IV Total 1057 ml # Voids 5 3 Labs Test 11/01/18 21:00 11/01/18 21:30 11/01/18 22:30 11/02/18 00:37 White Blood Count 21.3 K/UL (4.8-10.8) Red Blood Count 5.67 M/UL (4.70-6.10) Hemoglobin 17.3 G/DL (14.2-18.0) Hematocrit 47.7 % (42.0-52.0) Mean Corpuscular Volume 84 FL (80-99) Mean Corpuscular Hemoglobin 30.5 PG (27.0-31.0) Mean Corpuscular Hemoglobin Concent 36.3 G/DL (32.0-36.0) Red Cell Distribution Width 11.0 % (11.6-14.8) Platelet Count 279 K/UL (150-450) Mean Platelet Volume 6.3 FL (6.5-10.1) Neutrophils (%) (Auto) % (45.0-75.0) Lymphocytes (%) (Auto) % (20.0-45.0) Monocytes (%) (Auto) % (1.0-10.0) Eosinophils (%) (Auto) % (0.0-3.0) Basophils (%) (Auto) % (0.0-2.0) Differential Total Cells Counted 100 Neutrophils % (Manual) 85 % (45-75) Lymphocytes % (Manual) 10 % (20-45) Monocytes % (Manual) 2 % (1-10) Eosinophils % (Manual) 1 % (0-3) Basophils % (Manual) 1 % (0-2) Band Neutrophils 1 % (0-8) Platelet Estimate Adequate Platelet Morphology Normal Red Blood Cell Morphology Normal D-Dimer 0.76 mg/L FEU (0.00-0.49) Sodium Level 138 MMOL/L (136-145) Potassium Level 3.4 MMOL/L (3.5-5.1) Chloride Level 103 MMOL/L (98-107) Carbon Dioxide Level 25 MMOL/L (21-32) Anion Gap 10 mmol/L (5-15) Blood Urea Nitrogen 9 mg/dL (7-18) Creatinine 1.0 MG/DL (0.55-1.30) Estimat Glomerular Filtration Rate > 60 mL/min (>60) Glucose Level 104 MG/DL (74-106) Calcium Level 9.1 MG/DL (8.5-10.1) Total Bilirubin 2.0 MG/DL (0.2-1.0) Direct Bilirubin 0.4 MG/DL (0.0-0.3) Aspartate Amino Transf (AST/SGOT) 16 U/L (15-37) Alanine Aminotransferase (ALT/SGPT) 31 U/L (12-78) Alkaline Phosphatase 111 U/L (46-116) Total Creatine Kinase 163 U/L (26-308) Creatine Kinase MB 2.3 NG/ML (0.0-3.6) Creatine Kinase MB Relative Index 1.4 Troponin I 0.000 ng/mL (0.000-0.056) Pro-B-Type Natriuretic Peptide 74 pg/mL (0-125) Total Protein 7.6 G/DL (6.4-8.2) Albumin 3.9 G/DL (3.4-5.0) Globulin 3.7 g/dL Albumin/Globulin Ratio 1.1 (1.0-2.7) Urine Color Yellow Urine Appearance Clear Urine pH 7 (4.5-8.0) Urine Specific Hem[place] 1.010 (1.005-1.035) Urine Protein Negative (NEGATIVE) Urine Glucose (UA) Negative (NEGATIVE) Urine Ketones 4+ (NEGATIVE) Urine Blood Negative (NEGATIVE) Urine Nitrite Negative (NEGATIVE) Urine Bilirubin Negative (NEGATIVE) Urine Urobilinogen 4 MG/DL (0.0-1.0) Urine Leukocyte Esterase Negative (NEGATIVE) Urine Opiates Screen Negative (NEGATIVE) Urine Barbiturates Screen Negative (NEGATIVE) Phencyclidine (PCP) Screen Negative (NEGATIVE) Urine Amphetamines Screen Negative (NEGATIVE) Urine Benzodiazepines Screen Negative (NEGATIVE) Urine Cocaine Screen Positive (NEGATIVE) Urine Marijuana (THC) Screen Positive (NEGATIVE) Lactic Acid Level 1.90 mmol/L (0.4-2.0) Arterial Blood pH 7.420 (7.350-7.450) Arterial Blood Partial Pressure CO2 37.8 mmHg (35.0-45.0) Arterial Blood Partial Pressure O2 90.7 mmHg (75.0-100.0) Arterial Blood HCO3 24.0 mmol/L (22.0-26.0) Arterial Blood Oxygen Saturation 96.2 % (95-100) Arterial Blood Base Excess -0.2 (-2-2) Enmanuel Test Positive Test 11/02/18 06:34 11/02/18 10:10 11/03/18 05:36 White Blood Count 15.8 K/UL (4.8-10.8) 17.5 K/UL (4.8-10.8) 13.4 K/UL (4.8-10.8) Red Blood Count 5.10 M/UL (4.70-6.10) 5.52 M/UL (4.70-6.10) 5.06 M/UL (4.70-6.10) Hemoglobin 15.7 G/DL (14.2-18.0) 16.5 G/DL (14.2-18.0) 15.4 G/DL (14.2-18.0) Hematocrit 45.3 % (42.0-52.0) 49.2 % (42.0-52.0) 44.9 % (42.0-52.0) Mean Corpuscular Volume 89 FL (80-99) 89 FL (80-99) 89 FL (80-99) Mean Corpuscular Hemoglobin 30.7 PG (27.0-31.0) 29.9 PG (27.0-31.0) 30.4 PG (27.0-31.0) Mean Corpuscular Hemoglobin Concent 34.6 G/DL (32.0-36.0) 33.5 G/DL (32.0-36.0) 34.3 G/DL (32.0-36.0) Red Cell Distribution Width 12.0 % (11.6-14.8) 12.0 % (11.6-14.8) 11.9 % (11.6-14.8) Platelet Count 254 K/UL (150-450) 279 K/UL (150-450) 269 K/UL (150-450) Mean Platelet Volume 7.1 FL (6.5-10.1) 7.2 FL (6.5-10.1) 6.9 FL (6.5-10.1) Neutrophils (%) (Auto) % (45.0-75.0) % (45.0-75.0) % (45.0-75.0) Lymphocytes (%) (Auto) % (20.0-45.0) % (20.0-45.0) % (20.0-45.0) Monocytes (%) (Auto) % (1.0-10.0) % (1.0-10.0) % (1.0-10.0) Eosinophils (%) (Auto) % (0.0-3.0) % (0.0-3.0) % (0.0-3.0) Basophils (%) (Auto) % (0.0-2.0) % (0.0-2.0) % (0.0-2.0) Differential Total Cells Counted 100 100 Neutrophils % (Manual) 95 % (45-75) 92 % (45-75) Lymphocytes % (Manual) 3 % (20-45) 7 % (20-45) Monocytes % (Manual) 2 % (1-10) 1 % (1-10) Eosinophils % (Manual) 0 % (0-3) 0 % (0-3) Basophils % (Manual) 0 % (0-2) 0 % (0-2) Band Neutrophils 0 % (0-8) 0 % (0-8) Platelet Estimate Adequate Adequate Platelet Morphology Normal Normal Sodium Level 140 MMOL/L (136-145) 140 MMOL/L (136-145) 140 MMOL/L (136-145) Potassium Level 3.9 MMOL/L (3.5-5.1) 4.4 MMOL/L (3.5-5.1) 3.6 MMOL/L (3.5-5.1) Chloride Level 106 MMOL/L (98-107) 106 MMOL/L (98-107) 106 MMOL/L (98-107) Carbon Dioxide Level 24 MMOL/L (21-32) 26 MMOL/L (21-32) 23 MMOL/L (21-32) Anion Gap 10 mmol/L (5-15) 9 mmol/L (5-15) 11 mmol/L (5-15) Blood Urea Nitrogen 9 mg/dL (7-18) 9 mg/dL (7-18) 14 mg/dL (7-18) Creatinine 0.9 MG/DL (0.55-1.30) 1.1 MG/DL (0.55-1.30) 1.0 MG/DL (0.55-1.30) Estimat Glomerular Filtration Rate > 60 mL/min (>60) > 60 mL/min (>60) > 60 mL/min (>60) Glucose Level 155 MG/DL (74-106) 136 MG/DL (74-106) 150 MG/DL (74-106) Calcium Level 9.1 MG/DL (8.5-10.1) 9.6 MG/DL (8.5-10.1) 9.0 MG/DL (8.5-10.1) Total Bilirubin 1.0 MG/DL (0.2-1.0) Aspartate Amino Transf (AST/SGOT) 13 U/L (15-37) Alanine Aminotransferase (ALT/SGPT) 25 U/L (12-78) Alkaline Phosphatase 97 U/L (46-116) Total Protein 7.1 G/DL (6.4-8.2) Albumin 3.3 G/DL (3.4-5.0) Globulin 3.8 g/dL Albumin/Globulin Ratio 0.9 (1.0-2.7) HIV (1&2) Antibody Rapid Negative (NEGATIVE) Height (Feet): 5 Height (Inches): 6.00 Weight (Pounds): 150 Objective Physical Exam: Vitals: reviewed General Appearance: NAD HEENT: normocephalic, atraumatic Neck: non-tender, normal alignment Respiratory/Chest: normal breath sounds bilaterally Cardiovascular/Chest: normal peripheral pulses, normal rate Abdomen: normal bowel sounds, soft, nontender Extremities: normal range of motion Rodrigo Al MD Nov 04, 2018 17:49
--- NOTE | 2018-11-04 19:11 | NUR ---
HAND-OFF: Report given to KEVEN SNOW..
--- NOTE | 2018-11-04 19:20 | NUR ---
NURSE NOTES: Received report from Garima SNOW. Pt is in the bed. AO x4. Put new residential monitor leads and wire. Denies any pain. Call light is within reach. Bed is in the lowest position.
[2018-11-04 20:00] VITALS: BP 141/70
--- NOTE | 2018-11-04 20:44 | General Progress Note ---
Assessment/Plan Problem List: (1) Bronchospasm, acute ICD Codes: J98.01 - Acute bronchospasm SNOMED: 36696424654475 (2) Chest pain ICD Codes: R07.9 - Chest pain, unspecified SNOMED: 84818509 (3) Pneumonitis ICD Codes: J18.9 - Pneumonia, unspecified organism SNOMED: 505053725 Status: progressing Assessment/Plan: bronchitis improving continue iv abx no sob no wheezing afebrile Subjective ROS Limited/Unobtainable: Yes Allergies: Coded Allergies: No Known Allergies (Unverified , 11/01/18) Objective Last 24 Hour Vital Signs Date Time Temp Pulse Resp B/P (MAP) Pulse Ox O2 Delivery O2 Flow Rate FiO2 11/04/18 19:40 91 20 98 Room Air 11/04/18 19:30 91 20 98 Room Air 21 11/04/18 19:30 98 Room Air 11/04/18 16:00 98.2 88 18 127/67 (87) 97 11/04/18 16:00 85 11/04/18 15:52 74 20 98 Room Air 11/04/18 15:41 81 20 97 Room Air 11/04/18 12:00 98.6 84 20 122/66 (84) 97 11/04/18 12:00 94 11/04/18 11:34 89 20 99 Room Air 11/04/18 11:23 84 20 98 Room Air 11/04/18 11:09 Nasal Cannula 2.0 11/04/18 09:29 87 124/74 11/04/18 08:08 87 20 99 Room Air 11/04/18 08:00 98.4 83 18 124/74 (91) 95 11/04/18 08:00 87 20 98 Room Air 11/04/18 08:00 87 11/04/18 07:59 98 Room Air 11/04/18 04:00 79 11/04/18 04:00 98.7 79 18 120/66 (84) 100 11/04/18 03:59 88 18 98 Room Air 11/04/18 03:50 80 18 95 Room Air 11/04/18 00:01 92 18 99 Room Air 11/04/18 00:00 95 11/04/18 00:00 98.0 95 18 128/72 (90) 99 11/03/18 23:51 92 18 95 Room Air 21 11/03/18 21:00 Nasal Cannula 2.0 Intake and Output 11/03/18 11/04/18 19:00 07:00 Intake Total 1297 ml 120 ml Balance 1297 ml 120 ml Intake Oral 240 ml 120 ml IV Total 1057 ml # Voids 5 3 Height (Feet): 5 Height (Inches): 6.00 Weight (Pounds): 150 Cardiovascular: normal peripheral pulses Respiratory/Chest: lungs clear Abdomen: soft Devika Zamora MD Nov 04, 2018 20:44
[2018-11-04] MEDS ORDERED: Solu-MEDROL 40mg Inj IVP SCH (21:00)
--- NOTE | 2018-11-04 22:32 | Cardiology Progress Note ---
Assessment/Plan Assessment/Plan 1. Dyspnea, likely due to pneumonia, normal Beta-natriuretic peptide essentially rules out congestive heart failure. Normal LVEF as well LV diastolic function. 2. Sinus tachycardia, resolved, most likely secondary to cocaine use. Subjective Subjective Sinus rhythm at rate of 85. Objective Last 24 Hour Vital Signs Date Time Temp Pulse Resp B/P (MAP) Pulse Ox O2 Delivery O2 Flow Rate FiO2 11/04/18 21:00 Nasal Cannula 2.0 11/04/18 20:00 97.3 85 18 141/70 (93) 97 11/04/18 20:00 89 11/04/18 19:40 91 20 98 Room Air 21 11/04/18 19:30 91 20 98 Room Air 21 11/04/18 19:30 98 Room Air 21 11/04/18 16:00 98.2 88 18 127/67 (87) 97 11/04/18 16:00 85 11/04/18 15:52 74 20 98 Room Air 21 11/04/18 15:41 81 20 97 Room Air 21 11/04/18 12:00 98.6 84 20 122/66 (84) 97 11/04/18 12:00 94 11/04/18 11:34 89 20 99 Room Air 21 11/04/18 11:23 84 20 98 Room Air 21 11/04/18 11:09 Nasal Cannula 2.0 11/04/18 09:29 87 124/74 11/04/18 08:08 87 20 99 Room Air 21 11/04/18 08:00 98.4 83 18 124/74 (91) 95 11/04/18 08:00 87 20 98 Room Air 21 11/04/18 08:00 87 11/04/18 07:59 98 Room Air 21 11/04/18 04:00 79 11/04/18 04:00 98.7 79 18 120/66 (84) 100 11/04/18 03:59 88 18 98 Room Air 21 11/04/18 03:50 80 18 95 Room Air 21 11/04/18 00:01 92 18 99 Room Air 21 11/04/18 00:00 95 11/04/18 00:00 98.0 95 18 128/72 (90) 99 11/03/18 23:51 92 18 95 Room Air 21 Intake and Output 11/03/18 11/04/18 19:00 07:00 Intake Total 1297 ml 120 ml Balance 1297 ml 120 ml Intake Oral 240 ml 120 ml IV Total 1057 ml # Voids 5 3 2D Echo: LVEF 60%, Normal LV diastolic fxn, RVSP 12 mmHg, Trace MR Microbiology Date/Time Source Procedure Growth Status 11/01/18 22:35 Blood Blood Culture - Preliminary NO GROWTH AFTER 48 HOURS Resulted Objective HEENT: Atraumatic and normocephalic. Anicteric. Pupils are equal, round, and reactive to light and accommodation. Extraocular muscles are intact. NECK: JVP less than 5 cm. No carotid bruit. Carotid upstroke is 2+ bilaterally. CARDIOVASCULAR: Normal S1 and S2. Regular rate and rhythm. PMI is at fourth intercostal space at the midclavicular line. LUNGS: Clear to auscultation bilaterally. ABDOMEN: Soft, nontender, and nondistended. No hepatosplenomegaly. Positive bowel sounds. EXTREMITIES: No evidence of edema, clubbing, or cyanosis. Basil Gupta MD Nov 04, 2018 22:32
--- NOTE | 2018-11-04 23:01 | Diagnostic Imaging Report ---
APPROVED REPORT CPT Code: 03383 Present Symptoms Shortness of breath BILATERAL: Imaging reveals a patent deep venous system bilaterally. There is no evidence of thrombus within the femoral, popliteal or tibial segments. The greater saphenous veins are also within normal limits. Doppler indicates normal spontaneous flow within these segments.
[2018-11-05] VITALS: BP 129/72
[2018-11-05] MEDS: Albuterol/Ipratropium 3ml neb HHN SCH ×4 (03:27→15:02)
[2018-11-05 04:00] VITALS: BP 128/66
--- NOTE | 2018-11-05 07:25 | NUR ---
HAND-OFF: Report given to Candis SNOW.
--- NOTE | 2018-11-05 07:26 | NUR ---
NURSE NOTES: Received patient in bed. In no apparent distress. Awake, alert, able to make needs known. Call light within reach. With ongoing IVF of 1/2 NS running at 70 ml/hour. Will continue plan of care.
[2018-11-05 08:00] VITALS: BP 123/63
[2018-11-05] MEDS: dilTIAZem HCl CD 120mg cap ORAL SCH (08:36)
[2018-11-05] MEDS: Heparin 5000 units/ml inj SUBQ SCH (08:37)
[2018-11-05] MEDS ORDERED: Solu-MEDROL 40mg Inj IM SCH (09:00)
[2018-11-05 12:00] VITALS: BP 125/69
[2018-11-05] MEDS: cefTRIAXone 1 GM in D5W 55 ML IVPB SCH (12:24)
[2018-11-05] MEDS ORDERED: Azithromycin 250mg tab ORAL SCH (13:00)
--- NOTE | 2018-11-05 14:52 | NUR ---
NURSE NOTES: spoke with Dr Gupta and according to him pt is clear from his standpoint.
--- NOTE | 2018-11-05 15:09 | Cardiology Report ---
APPROVED REPORT EKG Measurement Heart [id number] Sinus tachycardia Rightward axis Possible Anterior infarct, age undetermined Abnormal ECG
[2018-11-05 16:00] VITALS: BP 137/74
--- NOTE | 2018-11-05 16:08 | NUR ---
HAND-OFF: Report given to Nevin Sifuentes RN.
--- NOTE | 2018-11-05 16:15 | NUR ---
NURSE NOTES: DR Beto GALVEZ CLEARED PATIENT FOR DISCHARGE TODAY AND TO START/NEW RX FOR LEAVQUIN ORAL. RX WILL BE GIVEN TO PATIENT.
--- NOTE | 2018-11-05 16:31 | Pulmonology Progress Note ---
Assessment/Plan Assessment/Plan Pulmonary Progress Note HPI Patient is a 28-year-old male admitted with chest discomfort shortness of breath and non productive cough, noted to have Pneumonia, patient reports last using cocaine approximately 3 days prior to arrival. He denies any prior history of HIV or other medical conditions. He states he has prior history of allergy to cocaine. Patient reports having increased chest discomfort. Denies hemoptysis, no previous Tuberculosis. Less SOB Allergies: No Known Allergies Past Medical History: Cocaine use All Other Systems: negative except mentioned in HPI Physical Exam Vital Signs Noted General Appearance: normal inspection, alert, GCS 15, moderate distress Head: atraumatic ENT: normal inspection, moist mm, normal voice Neck: normal inspection, no LN Respiratory: normal inspection, CTAB Cardiovascular #1: regular rate, rhythm, normal HS1, HS2, no edema Gastrointestinal: normal inspection, normal bowel sounds, non tender, soft, no guarding, no hernia Genitourinary: no CVA tenderness Musculoskeletal: normal inspection, back normal, normal range of motion Neurologic: normal inspection, alert, oriented x3, responsive, no focal signs Impression: Pneumonia, bilateral patchy infiltrates Cocaine use Chest pain- no PE/Aortic dissection on CTA chest Wheezing Plan Ceftriaxone and Azithromycin IV steroids - wean to PO HHN [employer]ILY [employer] meds PPX HIV serology negative Labs noted Subjective ROS Limited/Unobtainable: No Allergies: Coded Allergies: No Known Allergies (Unverified , 11/01/18) Objective Last 24 Hour Vital Signs Date Time Temp Pulse Resp B/P (MAP) Pulse Ox O2 Delivery O2 Flow Rate FiO2 11/05/18 15:10 90 20 99 Room Air 21 11/05/18 15:00 81 20 98 Room Air 21 11/05/18 12:00 98.2 82 20 125/69 (87) 94 11/05/18 11:57 89 11/05/18 11:32 95 20 98 Room Air 21 11/05/18 11:24 82 20 98 Room Air 21 11/05/18 09:00 Nasal Cannula 2.0 11/05/18 08:36 83 123/63 11/05/18 08:00 98.6 83 18 123/63 (83) 95 11/05/18 07:41 96 11/05/18 07:23 80 20 99 Room Air 21 11/05/18 07:14 83 20 98 Room Air 21 11/05/18 07:14 98 Room Air 21 11/05/18 04:00 77 11/05/18 04:00 97.5 70 18 128/66 (86) 97 11/05/18 03:37 82 18 99 Room Air 21 11/05/18 03:27 86 18 97 Room Air 21 11/05/18 00:00 98.6 85 18 129/72 (91) 98 11/04/18 23:47 88 20 99 Room Air 11/04/18 23:45 99 11/04/18 23:37 88 20 96 Room Air 21 11/04/18 23:35 83 11/04/18 21:00 Nasal Cannula 2.0 11/04/18 20:00 97.3 85 18 141/70 (93) 97 11/04/18 20:00 89 11/04/18 19:40 91 20 98 Room Air 21 11/04/18 19:30 91 20 98 Room Air 11/04/18 19:30 98 Room Air 21 Intake and Output 11/04/18 11/05/18 19:00 07:00 Intake Total 400 ml 840 ml Output Total 1000 ml Balance 400 ml -160 ml Intake Oral 400 ml 140 ml IV Total 700 ml Output Urine Total 1000 ml # Voids 3 3 Current Medications Medications (Trade) Dose Ordered Sig/Warren Route PRN Reason Start Time Stop Time Status Last Admin Dose Admin Acetaminophen (Tylenol) 650 mg Q4H PRN ORAL Mild Pain/Temp > 100.5 11/02/18 09:30 12/02/18 09:29 11/02/18 10:37 Albuterol/ Ipratropium (Albuterol/ Ipratropium) 3 ml Q4HRT HHN 11/02/18 15:00 11/07/18 14:59 11/05/18 15:02 Azithromycin (Zithromax) 500 mg Q24HRS ORAL 11/05/18 13:00 11/08/18 13:59 11/05/18 12:36 Ceftriaxone Sodium 1 gm/ Dextrose 55 ml @ 110 mls/hr Q24H IVPB 11/02/18 12:00 11/09/18 11:59 11/05/18 12:24 Diltiazem HCl (Cardizem CD) 120 mg DAILY ORAL 11/03/18 18:15 12/03/18 18:14 11/05/18 08:36 Heparin Sodium (Porcine) (Heparin 5000 units/ml) 5,000 units Q12HR SUBQ 11/02/18 21:00 12/02/18 20:59 11/05/18 08:37 Hydralazine HCl (Apresoline) 25 mg Q6H PRN ORAL For High Blood Pressure 11/02/18 10:00 12/02/18 09:59 Lorazepam (Ativan) 1 mg Q4H PRN ORAL For Anxiety/agitation 11/02/18 09:30 11/09/18 09:29 Ondansetron HCl (Zofran) 4 mg Q8H PRN IVP Nausea & Vomiting 11/02/18 10:00 12/02/18 09:59 Prednisone (predniSONE) 30 mg DAILY ORAL 11/05/18 09:00 12/05/18 08:59 11/05/18 08:36 Tommy Jacobs MD Nov 05, 2018 16:30
[2018-11-05] MEDS ORDERED: 1/2 NS 1000ml IV ONE (17:31)
--- NOTE | 2018-11-05 17:32 | NUR ---
NURSE NOTES: patient will be discharge home today per order from dr lubin, monitoring analyst removed and endorsed to MT. IV line removed and bleeding was stopped. Script was given to the patient for levaquin 750mg PO daily per dr mayra vergara. patient is AOX4, not in acute distress. belongings checked and signed by the patient and myself.all is accounted for including the money.picked up by a friend. patient is stable.
--- NOTE | 2018-11-07 09:57 | CDS Physician Query ---
Clarification is required for compliance, coding accuracy, and to reflect severity of illness for this patient. Dear Dr. Patricio Mak Date: 11/04/2018 CDS: Genet Enriquez Clinical Documentation States: 11/02 note: Sepsis with leukocytosis and tachycardia, source the patient seems to have pneumonia more likely atypical, has cocaine abuse, marijuana abuse. Vitals/labs on admission: WBC 21.3, PA 125, RR 34, Temp 98.6 Treatment: azithromycin, ceftriaxone Please note if Sepsis was Present on Admission: [] Yes [] No [] Clinically Undetermined Physician signature Date Please also document in your Progress Notes and/or Discharge Summary and indicate if the condition was present on admission. BRAULIOD
--- NOTE | 2018-11-07 11:07 | Discharge Summary ---
Discharge Summary Discharge Summary _ DATE OF ADMISSION: 11/01/2018 DATE OF DISCHARGE: 11/05/2018 DISCHARGED BY: Dr. Zamora REASON FOR ADMISSION: 28 years old male with no significant past medical history , presented to emergency department with chest discomfort. Patient reported increased chest tightness. Patient reported using cocaine. Last cocaine use about 3 days prior to ED visit. Patient also reported nonproductive cough and difficulty with respiration. Upon evaluation patient was tachycardic with heart rate 120 , blood pressure was elevated 163/81 . Patient required supplemental oxygen since he was hypoxic. Laboratory work-up revealed significant leukocytosis with WBC 21.3, stable hemoglobin and hematocrit. D-dimer 0.76. Potassium 3.4. Stable other electrolytes and renal parameters. Urinalysis revealed no evidence of urinary tract infection. Urine toxicology screen was positive for THC and cocaine. Chest x-ray demonstrated findings suggestive of perihilar infiltrate. CTA of the chest revealed no evidence of pulmonary emboli , aortic dissection or aneurysm. Patient subsequently admitted to telemetry floor for further management. CONSULTANTS: orientation & mobility specialist Dr. Gupta pulmonary Dr. Jacobs ID specialist Dr. Ojeda director college/oncologist Dr. Al pain specialist Dr. Yuan [facility] COURSE: Patient admitted to telemetry floor. Gre Instructor closely followed. Venous duplex bilateral lower extremity revealed no evidence of acute DVT. Patient started on empiric antibiotics for pneumonia. Echocardiogram revealed preserved ejection fraction of 60% with no evidence of wall motion abnormality. No evidence of left ventricular hypertrophy. Right ventricular systolic pressure of 12. Pro BNP 74. According to orientation & mobility specialist, dyspnea was likely due to pneumonia, since normal pro BNP essentially rules out congestive heart failure. Sinus tachycardia was most likely secondary to cocaine use, and resolved. Blood pressure was managed with calcium channel rafael and hydralazine. Blood pressure stabilized. Antibiotic provided as per ID specialist recommendation. Blood culture were negative. Leukocytosis trended down from initial 21.3 down to 13.4. No fevers. Per ID specialist, pneumonia was most likely atypical. Patient was on ceftriaxone and azithromycin while in the hospital , and upon discharge antibiotic changed to oral Levaquin to complete the course as per ID specialist recommendation. Body Coverer followed. Supplemental oxygen provided as needed to keep pulse oximetry above 92%. Pulmonary toilet with via handheld nebulizing therapy with bronchodilator provided as needed. Patient initially started on the IV steroids due to bronchospasm , which gradually tapered and changed to oral upon discharge. DVT prophylaxis provided. HIV test was nonreactive. Corrections Caseworker followed for leukocytosis.Leukocytosis was most likely due to infection . In addition, patient was also on steroids. Leukocytosis trended down , as mentioned above. Pain management was addressed , as per pain specialist recommendation. Pain was controlled. Patient was counseled on abstinence from illicit street drugs. Patient clinically stabilized and was ready for discharge. FINAL DIAGNOSES: Sepsis with leukocytosis and tachycardia/present on admission Pneumonia, most likely atypical Dyspnea , likely secondary to pneumonia -resolved Sinus tachycardia, likely secondary to cocaine use -resolved Acute bronchospasm-resolved Cocaine abuse Marijuana abuse DISCHARGE MEDICATIONS: List of medication was sent with patient. DISCHARGE INSTRUCTIONS: Patient was discharged home. Follow up with primary care provider in one week. I have been assigned to dictate discharge summary for this account. I was not involved in the patient's management. Wilda Peck NP Nov 07, 2018 11:07
--- NOTE | 2018-11-07 19:19 | Cardiology Report ---
APPROVED REPORT EXAM: Two-dimensional and M-mode echocardiogram with Doppler and color Doppler. INDICATION Tachycardia M-Mode DIMENSIONS IVSd0.7 (0.7-1.1cm)Left Atrium (MM)2.9 (1.6-4.0cm) LVDd4.9 (3.5-5.6cm)Aortic Root3.0 (2.0-3.7cm) PWd0.7 (0.7-1.1cm)Aortic Cusp Exc.2.0 (1.5-2.0cm) LVDs3.1 (2.5-4.0cm) PWs1.1 cm Normal left ventricular chamber size, systolic function and wall motion. Left ventricular ejection fraction estimated to be 60 %. No evidence of left ventricular hypertrophy. No evidence of pericardial effusion. All other cardiac chamber sizes are within normal limits. Normal appearing aortic, mitral, pulmonic and tricuspid valves. Mitral annulus and aortic root calcification. IVC is normal in size with physiological collapse. A color flow and spectral Doppler study was performed and revealed: No aortic regurgitation. Trace mitral regurgitation. Normal left ventricular diastolic function. Trace tricuspid regurgitation. Tricuspid systolic velocities suggests peak right ventricular systolic pressure of 12 mmHg. No pulmonic regurgitation present.
== END 2018-11-05 17:30 | disposition home or self-care (01) | DRG 720 ==
LOC: EMR 21:34 → 2E 22:56 → EDBEDREQ 11-02 00:20 → 2E 11-04 06:48
DX: A41.9 Sepsis, unspecified organism (principal); J18.8 Other pneumonia, unspecified organism; F14.10 Cocaine abuse, uncomplicated; F12.10 Cannabis abuse, uncomplicated; J98.01 Acute bronchospasm; F10.239 Alcohol dependence with withdrawal, unspecified; I10 Essential (primary) hypertension; F17.200 Nicotine dependence, unspecified, uncomplicated
CPT/HCPCS: 36415; 36600; 71045; 71275; 80048; 80053; 80307; 81003; 82248; 82550; 82553; 82803; 83605; 83880; 84484; 85007; 85025; 85379; 86703; 87040; 93005; 93306; 93970; 94640; 94664; 96361; 96365; 96368; 96375; 99285; J7620